=== PATIENT | female | born 1955 | race Caucasian/White ===

== ENCOUNTER → 2018-02-03 | Outpatient (CLI) | payer BC ==
[~2018-02-03] MED LIST: ATEN-1 PO; ATEN-65 PO; AZIT500T47 PO; CALC-545 PO; CETI-169 PO; CHOL500025 PO; CICPT NS; CLI150 PO; DIOVAN; DOXY-181 PO; ERG400 PO; ESC10 PO; EST5T TD; ESTR0.5T18 PO; FEXO-72 PO; FISH OIL1 CAP PO; FLU20 PO; IBU800 PO; KET10 PO; LACT1TAB19 PO; LEV175 PO; LEVO200T44 PO; LEVOX; LOR1 PO; LORA-674 PO; MAGN100T5 PO; MAX75 FT; MELO-149 PO; MUP2T TOP; NEBI2.5T PO; OMEP-218 PO; ONDA4TAB PO; PROM-110 PO; TRIEST; VALS1TAB76 PO; [UNRECOGNIZED DRUG - CODE] PO; diovan
== END ==
LOC: LAB 08:34
PROVIDERS: ATTEND Internal Medicine Endocrinology, Diabetes & Metabolism
DX: E21.3 Hyperparathyroidism, unspecified (principal); E03.9 Hypothyroidism, unspecified; R73.03 Prediabetes; E83.52 Hypercalcemia; E78.5 Hyperlipidemia, unspecified
CPT/HCPCS: 36415; 82040; 82247; 82306; 82310; 82330; 82374; 82435; 82465; 82565; 82947; 83036; 83718; 83735; 83970; 84075; 84100; 84132; 84155; 84295; 84443; 84450; 84460; 84478; 84520

== ENCOUNTER 2018-02-13 17:32 | Emergency (ER) | payer BC ==
--- NOTE | 2018-02-13 17:53 | ER Report ---
History and Physical Time Seen By MD: 17:51 Hx. of Stated Complaint: NAUSEA, VOMITTING, EXPLOSIVE DIARRHEA SINCE THIS MORNING. BODY ACHES EVERYWHERE HPI/ROS CHIEF COMPLAINT: Explosive diarrhea HISTORY OF PRESENT ILLNESS: 62-year-old female presents ambulatory to the ER complaining of vomiting and diarrhea. 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 She was traveling on the road eating in restaurants in truck stops. Early yesterday morning she developed diarrhea. It become explosive over the last 6 hours. She's had numerous episodes of vomiting. She feels lightheaded and dizzy. She's had no blood in the emesis or diarrhea. She 's had no fever. She denies recent anabolic use or exposure to ill contacts. REVIEW OF SYSTEMS: Respiratory: No cough, no dyspnea. Cardiovascular: No chest pain, no palpitations. Gastrointestinal: As above Musculoskeletal: No back pain. Allergies: Coded Allergies: cefaclor (Verified Allergy, Severe, ANAPHYLAXIS, 02/13/18) cephalexin (Verified Allergy, Severe, ANAPHYLAXIS, 02/13/18) Penicillins (Verified Allergy, Mild, may have it in emergency only, 02/13/18 ) Shellfish (Verified Allergy, Mild, 02/13/18) Sulfa (Sulfonamide Antibiotics) (Verified Allergy, Mild, 02/13/18) bacitracin (Verified Allergy, Mild, 02/13/18) benzocaine (Verified Allergy, Mild, 02/13/18) butoconazole (Verified Allergy, Mild, 02/13/18) chlorpheniramine (Verified Allergy, Mild, 02/13/18) cimetidine (Verified Allergy, Mild, 02/13/18) erythromycin base (Verified Allergy, Mild, 02/13/18) gramicidin D (Verified Allergy, Mild, 02/13/18) hydrocodone (Verified Allergy, Mild, 02/13/18) hydromorphone (Verified Allergy, Mild, 02/13/18) latex (Verified Allergy, Mild, 02/13/18) menthol (Verified Allergy, Mild, 02/13/18) miconazole (Verified Allergy, Mild, 02/13/18) morphine (Verified Allergy, Mild, 02/13/18) neomycin (Verified Allergy, Mild, 02/13/18) oxycodone (Verified Allergy, Mild, 02/13/18) phenazopyridine (Verified Allergy, Mild, 02/13/18) phenol (Verified Allergy, Mild, 02/13/18) polymyxin B (Verified Allergy, Mild, 02/13/18) povidone-iodine (Verified Allergy, Mild, 02/13/18) prochlorperazine (Verified Allergy, Mild, 02/13/18) sertraline (Verified Allergy, Mild, 02/13/18) tramadol (Verified Allergy, Mild, 02/13/18) Cephalosporins (Verified Allergy, Unknown, 02/13/18) clarithromycin (Verified Adverse Reaction, Mild, LOW WBC COUNT, 02/13/18) Uncoded Allergies: LATEX (Allergy, Mild, 10/30/10) NUTRASWEET (Allergy, Mild, 07/10/10) Home Meds Active Scripts Promethazine Hcl (PROMETHAZINE HCL) 25 Mg Tablet, 25 MG PO Q4H Y for NAUSEA/ VOMITING, #14 TAB Prov:ARLET ABAD DO 02/13/18 Ondansetron (ZOFRAN ODT) 4 Mg Tab.rapdis, 4 MG PO every 6 hours Y for NAUSEA/ VOMITING, #15 TAB TAKE 1 TABLET BY MOUTH EVERY 12 HOURS Prov:ARLET ABAD DO 02/13/18 Doxycycline Hyclate (DOXYCYCLINE HYCLATE) 100 Mg Capsule, 100 MG PO BID, #20 CAPSULE 0 Refills Prov:KENA CAR MD 05/09/15 Reported Medications Lactobacillus Acidophilus (Acidophilus) 1 Each Tablet, 1 TAB PO DAILY 02/04/14 Nebivolol Hcl (BYSTOLIC) 2.5 Mg Tablet, 2.5 MG PO DAILY 02/04/14 Fexofenadine Hcl (DEMIAN ALLERGY) 60 Mg Tablet, 30 MG PO DAILY 02/04/14 [place]-3 Fatty Acids (Fish Oil) 1 Cap Capsule, 1 CAP PO BID, 0 Refills 12/03/11 Calcium Citrate/Vitamin D3 (Citracal + D Caplet) 1 Tab Tablet, 1 TAB PO BID, 0 Refills 12/03/11 Cholecalciferol (Vitamin D3) 5,000 Unit Tablet, 5000 UNIT PO DAILY, 0 Refills 12/03/11 Fluoxetine Hcl (Prozac) 20 Mg Cap, 20 MG PO QDAY, 0 Refills 12/03/11 Estradiol (Estrace) 0.5 Mg Tablet, 1 MG PO DAILY, 0 Refills 12/03/11 Levothyroxine Sodium (Synthroid/Levothroid) 0.175 Mg Tab, 200 MCG PO QDAY, 0 Refills 12/03/11 Omeprazole Magnesium (Prilosec Otc) 20 Mg Tablet.dr, 20 MG PO QDAY Y for DYSPEPSIA, 0 Refills 12/03/11 Reviewed Nurses Notes: Yes Old Medical Records Reviewed: Yes Hx Smoking: Yes Smoking Status: Former Smoker Exposure to Second Hand Smoke?: No Hx Substance Use Disorder: No Hx Alcohol Use: No Constitutional Vital Sign - Last 24 Hours 02/13/18 02/13/18 02/13/18 02/13/18 17:37 17:41 18:42 18:45 Temp 99.5 Pulse 100 Resp 18 B/P (MAP) 161/107 161/107 (125) 155/81 (105) Pulse Ox 91 O2 Delivery Room Air O2 Flow Rate 4.5 02/13/18 02/13/18 02/13/18 02/13/18 18:47 18:52 18:57 19:27 Pulse 100 96 94 88 Pulse Ox 88 92 93 97 O2 Delivery Nasal Cannula O2 Flow Rate 4.5 02/13/18 02/13/18 02/13/18 02/13/18 19:32 19:41 19:46 20:16 Pulse 87 90 87 B/P (MAP) 134/80 (98) Pulse Ox 97 95 96 97 O2 Delivery Nasal Cannula O2 Flow Rate 3 02/13/18 02/13/18 02/13/18 20:46 20:48 20:50 Pulse 90 85 89 B/P (MAP) 130/79 (96) Pulse Ox 96 93 92 O2 Delivery Room Air Physical Exam General Appearance: The patient is alert, has no immediate need for airway protection and no current signs of toxicity. Vital signs stable, afebrile, slightly pale appearing, skin warm and dry Eyes: Pupils equal and round no injection. Respiratory: Chest is non tender, lungs are clear to auscultation. Cardiac: regular rate and rhythm Gastrointestinal: Abdomen is soft and non tender, no masses, bowel sounds hyperactive. Musculoskeletal: Neck: Neck is supple and non tender. Extremities have full range of motion and are non tender. Skin: No rashes or lesions. DIFFERENTIAL DIAGNOSIS: After history and physical exam differential diagnosis was considered for abdominal pain including but not limited to appendicitis, cholecystitis, gastritis, gastroenteritis, food poisoning, viral syndrome, Clostridium difficile and urinary tract infection. Medical Decision Making Data Points Result Diagram: 02/13/18 18202/13/18 1822 Laboratory Hematology Test 02/13/18 17:45 02/13/18 18:10 02/13/18 18:22 Influenza Virus Type A (PCR) Negative (NEGATIVE) Influenza Virus Type B (PCR) Negative (NEGATIVE) Urine Color Yellow Urine Clarity Slightly-cloudy Urine pH 5.0 pH (4.8-9.5) Urine Specific [place] 1.019 Urine Protein Negative mg/dL (NEGATIVE) Urine Glucose (UA) Negative mg/dL (NEGATIVE) Urine Ketones Negative mg/dL (NEGATIVE) Urine Blood Small (NEGATIVE) Urine Nitrite Negative (NEGATIVE) Urine Bilirubin Negative (NEGATIVE) Urine Urobilinogen Negative mg/dL (0.2-1.9) Urine Leukocyte Esterase Negative (NEGATIVE) Urine RBC None /HPF (0-2/HPF) Urine WBC 3 /HPF (0-5/HPF) Urine Squamous Epithelial Cells Many /LPF (</=FEW) Urine Bacteria Negative /HPF (NONE-FEW) Urine Mucus None /HPF (NONE-FEW) Red Blood Count 5.55 M/uL (4.17-5.56) Mean Corpuscular Volume 87.1 fL (80.0-96.0) Mean Corpuscular Hemoglobin 30.6 pg (26.0-33.0) Mean Corpuscular Hemoglobin Concent 35.1 g/dL (32.0-36.0) Red Cell Distribution Width 13.5 % (11.5-14.5) Mean Platelet Volume 7.9 fL (7.2-11.1) Neutrophils (%) (Auto) 86.8 % (39.4-72.5) Lymphocytes (%) (Auto) 7.6 % (17.6-49.6) Monocytes (%) (Auto) 3.9 % (4.1-12.4) Eosinophils (%) (Auto) 0.4 % (0.4-6.7) Basophils (%) (Auto) 1.3 % (0.3-1.4) Nucleated RBC Relative Count (auto) 0.1 /100WBC Neutrophils # (Auto) 7.0 K/uL (2.0-7.4) Lymphocytes # (Auto) 0.6 K/uL (1.3-3.6) Monocytes # (Auto) 0.3 K/uL (0.3-1.0) Eosinophils # (Auto) 0.0 K/uL (0.0-0.5) Basophils # (Auto) 0.1 K/uL (0.0-0.1) Nucleated RBC Absolute Count (auto) 0.01 K/uL Sodium Level 140 mmol/L (137-145) Potassium Level 4.0 mmol/L (3.5-5.0) Chloride Level 99 mmol/L (98-107) Carbon Dioxide Level 23 mmol/L (22-31) Blood Urea Nitrogen 28 mg/dl (7-18) Creatinine 1.20 mg/dl (0.52-1.04) Glomerular Filtration Rate Calc 45.8 Random Glucose 143 mg/dl (75-110) Calcium Level 9.0 mg/dl (8.4-10.2) Total Bilirubin 0.7 mg/dl (0.2-1.3) Aspartate Amino Transf (AST/SGOT) 24 U/L (0-35) Alanine Aminotransferase (ALT/SGPT) 26 U/L (0-56) Alkaline Phosphatase 117 U/L (0-126) Total Protein 7.6 gm/dl (6.3-8.2) Albumin 4.2 g/dl (3.5-5.0) Amylase Level 81 U/L (0-110) Lipase 93 U/L (23-300) Chemistry Test 02/13/18 17:45 02/13/18 18:10 02/13/18 18:22 Influenza Virus Type A (PCR) Negative (NEGATIVE) Influenza Virus Type B (PCR) Negative (NEGATIVE) Urine Color Yellow Urine Clarity Slightly-cloudy Urine pH 5.0 pH (4.8-9.5) Urine Specific [place] 1.019 Urine Protein Negative mg/dL (NEGATIVE) Urine Glucose (UA) Negative mg/dL (NEGATIVE) Urine Ketones Negative mg/dL (NEGATIVE) Urine Blood Small (NEGATIVE) Urine Nitrite Negative (NEGATIVE) Urine Bilirubin Negative (NEGATIVE) Urine Urobilinogen Negative mg/dL (0.2-1.9) Urine Leukocyte Esterase Negative (NEGATIVE) Urine RBC None /HPF (0-2/HPF) Urine WBC 3 /HPF (0-5/HPF) Urine Squamous Epithelial Cells Many /LPF (</=FEW) Urine Bacteria Negative /HPF (NONE-FEW) Urine Mucus None /HPF (NONE-FEW) White Blood Count 8.0 k/uL (4.5-11.0) Red Blood Count 5.55 M/uL (4.17-5.56) Hemoglobin 17.0 g/dL (12.0-16.0) Hematocrit 48.3 % (34.0-47.0) Mean Corpuscular Volume 87.1 fL (80.0-96.0) Mean Corpuscular Hemoglobin 30.6 pg (26.0-33.0) Mean Corpuscular Hemoglobin Concent 35.1 g/dL (32.0-36.0) Red Cell Distribution Width 13.5 % (11.5-14.5) Platelet Count 319 K/uL (150-450) Mean Platelet Volume 7.9 fL (7.2-11.1) Neutrophils (%) (Auto) 86.8 % (39.4-72.5) Lymphocytes (%) (Auto) 7.6 % (17.6-49.6) Monocytes (%) (Auto) 3.9 % (4.1-12.4) Eosinophils (%) (Auto) 0.4 % (0.4-6.7) Basophils (%) (Auto) 1.3 % (0.3-1.4) Nucleated RBC Relative Count (auto) 0.1 /100WBC Neutrophils # (Auto) 7.0 K/uL (2.0-7.4) Lymphocytes # (Auto) 0.6 K/uL (1.3-3.6) Monocytes # (Auto) 0.3 K/uL (0.3-1.0) Eosinophils # (Auto) 0.0 K/uL (0.0-0.5) Basophils # (Auto) 0.1 K/uL (0.0-0.1) Nucleated RBC Absolute Count (auto) 0.01 K/uL Glomerular Filtration Rate Calc 45.8 Calcium Level 9.0 mg/dl (8.4-10.2) Total Bilirubin 0.7 mg/dl (0.2-1.3) Aspartate Amino Transf (AST/SGOT) 24 U/L (0-35) Alanine Aminotransferase (ALT/SGPT) 26 U/L (0-56) Alkaline Phosphatase 117 U/L (0-126) Total Protein 7.6 gm/dl (6.3-8.2) Albumin 4.2 g/dl (3.5-5.0) Amylase Level 81 U/L (0-110) Lipase 93 U/L (23-300) Urinalysis Test 02/13/18 18:10 Urine Color Yellow Urine Clarity Slightly-cloudy Urine pH 5.0 pH (4.8-9.5) Urine Specific [place] 1.019 Urine Protein Negative mg/dL (NEGATIVE) Urine Glucose (UA) Negative mg/dL (NEGATIVE) Urine Ketones Negative mg/dL (NEGATIVE) Urine Blood Small (NEGATIVE) Urine Nitrite Negative (NEGATIVE) Urine Bilirubin Negative (NEGATIVE) Urine Urobilinogen Negative mg/dL (0.2-1.9) Urine Leukocyte Esterase Negative (NEGATIVE) Urine RBC None /HPF (0-2/HPF) Urine WBC 3 /HPF (0-5/HPF) Urine Squamous Epithelial Cells Many /LPF (</=FEW) Urine Bacteria Negative /HPF (NONE-FEW) Urine Mucus None /HPF (NONE-FEW) ED Course/Re-evaluation Clinical Indication for ER IV: Hydration, IV Access ED Course Patient was admitted to an examination room. H&P was done. The differential diagnoses was considered. On clinical examination. Patient has a benign nonsurgical abdomen. Her vital signs are stable. She is treated with IV fluid hydration, Zofran and Phenergan IV. Her diagnostic studies are unremarkable. Patient's only had diarrhea for one day. I suspect she suffered food poisoning from her recent travels eating at truck stops in restaurants along the route. Patient advised clear liquid diet. She is given prescriptions for Phenergan and Zofran. She is advised to follow-up with primary care if unimproved in 3-5 days. Decision to Disposition Date: Feb 13, 2018 Decision to Disposition Time: 20:08 Depart Departure Latest Vital Signs Vital Signs Date Time Temp Pulse Resp B/P (MAP) Pulse Ox O2 Delivery O2 Flow Rate FiO2 02/13/18 20:50 89 130/79 (96) 92 Room Air 02/13/18 19:41 3 02/13/18 17:37 99.5 18 Impression: Primary Impression: Food poisoning Additional Impressions: Vomiting and diarrhea Chronic renal failure, stage 1 Condition: Improved Disposition: HOME OR SELF-CARE Referrals: STACI MCINTOSH DO (PCP) New Scripts Promethazine Hcl (PROMETHAZINE HCL) 25 Mg Tablet 25 MG PO Q4H Y for NAUSEA/VOMITING, #14 TAB Prov: ARLET ABAD DO 02/13/18 Ondansetron (ZOFRAN ODT) 4 Mg Tab.rapdis 4 MG PO every 6 hours Y for NAUSEA/VOMITING, #15 TAB TAKE 1 TABLET BY MOUTH EVERY 12 HOURS Prov: ARLET ABAD DO 02/13/18 Patient Instructions: Clear Liquid Diet (ED), Food Poisoning (ED) Additional Instructions: Follow clear liquid diet for 24-48 hours, then advance to the brat diet, bananas , rice, applesauce and toast Avoid fatty food, greasy foods, vegetables and dairy for 48 hours Follow-up with your primary care if unimproved in 3-5 days Problem Qualifiers Primary Impression: Food poisoning Encounter type: initial encounter Injury intent: accidental or unintentional Qualified Codes: T62.91XA - Toxic effect of unspecified noxious substance eaten as food, accidental (unintentional), initial encounter ARLET ABAD DO Feb 13, 2018 17:52
[2018-02-13] MEDS ORDERED: NS(*) 0.9% 1000 ML BAG 1,000 ML IV ONE (17:58)
[2018-02-13] MEDS ORDERED: PROMETHAZINE 25 MG/ML 1 ML AMP IVP ONE (18:00)
[2018-02-13] MEDS ORDERED: fentaNYL CITR 100 MCG/2 ML AMP IVP ONE (18:00)
[2018-02-13] MEDS ORDERED: ONDANSETRON 4 MG/2 ML VIAL IVP ONE (18:00)
[2018-02-13 18:47] LABS: PLATELET COUNT, AUTOMATED 319 K/uL (150-450)
[2018-02-13] MEDS ORDERED: ONDA4TAB PO (20:10)
[2018-02-13] MEDS ORDERED: PROM-110 PO (20:10)
[2018-02-13 20:50] VITALS: BP 130/79
[2018-02-13] MEDS ORDERED: PROMETHAZINE HCL 25 MG TAB TH 2 TAB/BOTTLE PO ONE (20:55)
[2018-02-13] MEDS ORDERED: ONDANSETRON 4 MG ODT TABDP SL ONE (20:55)
== END 2018-02-13 20:59 | disposition home or self-care (01) ==
LOC: ER 17:57
DX: T62.91XA Toxic effect of unspecified noxious substance eaten as food, accidental (unintentional), initial encounter (principal); N18.1 Chronic kidney disease, stage 1
CPT/HCPCS: 81001; 82150; 83690; 85025; 87502; 96361; 96374; 96375; 99284; J2405; J2550; J3010; J7030; S0119; 82040; 82247; 82310; 82374; 82435; 82565; 82947; 84075; 84132; 84155; 84295; 84450; 84460; 84520

== ENCOUNTER → 2018-05-29 | Outpatient (CLI) | payer BC ==
--- NOTE | 2018-05-29 16:19 | RADIOLOGY IMAGING REPORT ---
FACILITY: [facility] [place] PATIENT NAME: JESÚS MOTA : [id number] MR: [id number] V: [id number] EXAM DATE: [id number] ORDERING PHYSICIAN: STACI MCINTOSH TECHNOLOGIST: Rohini Dumont PROCEDURE:BILATERAL DIGITAL SCREENING MAMMOGRAM WITH CAD ASSISTED INTERPRETATION & 3D TOMOSYNTHESIS COMPARISON:Multiple priors between 04/09/17 and 11/21/12. INDICATIONS:screening FINDINGS: The breasts have scattered fibroglandular parenchymal densities. Small asymmetries and benign appearing areas of nodularity are not changed significantly. No new mammographic findings concerning for malignancy. DIAGNOSTIC CATEGORY 2-BENIGN FINDING. RECOMMENDATIONS: ROUTINE MAMMOGRAM AND CLINICAL EVALUATION IN 1 YEAR. IMPRESSION: BIRADS 2: Benign findings. Dictated by: Juan Manuel Cardenas on 05/29/2018 at 13:52 Transcribed by: VICKEY on 05/29/2018 at 14:07 Approved by: Juan Manuel Cardenas on 05/29/2018 at 16:18 [facility]
== END ==
LOC: MAMO 01:53
PROVIDERS: ATTEND Family Medicine
DX: Z12.31 Encounter for screening mammogram for malignant neoplasm of breast (principal)
CPT/HCPCS: 77063; 77067

== ENCOUNTER → 2018-06-11 | Outpatient (CLI) | payer BC | LOC: LAB 10:10 | PROVIDERS: ATTEND Family Medicine | DX: L40.52 Psoriatic arthritis mutilans (principal); M25.50 Pain in unspecified joint; E28.2 Polycystic ovarian syndrome | CPT/HCPCS: 36415; 82671; 83001; 83002; 85027; 85651; 86140; 86430 ==

== ENCOUNTER → 2018-06-26 | Outpatient (CLI) | payer BC | LOC: LAB 12:14 | PROVIDERS: ATTEND Family Medicine | DX: L40.9 Psoriasis, unspecified (principal); M25.40 Effusion, unspecified joint; M25.50 Pain in unspecified joint | CPT/HCPCS: 36415; 86038; 86140 ==

== ENCOUNTER → 2018-07-29 | Outpatient (CLI) | payer BC | LOC: LAB 12:41 | PROVIDERS: ATTEND Internal Medicine Endocrinology, Diabetes & Metabolism | DX: E03.9 Hypothyroidism, unspecified (principal); E21.3 Hyperparathyroidism, unspecified | CPT/HCPCS: 36415; 82040; 82247; 82306; 82310; 82330; 82374; 82435; 82565; 82947; 83036; 83735; 83970; 84075; 84100; 84132; 84155; 84295; 84443; 84450; 84460; 84520 ==

== ENCOUNTER → 2018-08-27 | Outpatient (CLI) | payer BC | LOC: LAB 10:44 | PROVIDERS: ATTEND Internal Medicine Endocrinology, Diabetes & Metabolism | DX: E21.3 Hyperparathyroidism, unspecified (principal) | CPT/HCPCS: 36415; 82330; 83970 ==

== ENCOUNTER → 2018-09-17 | Outpatient (CLI) | payer BC | LOC: LAB 09:05 | PROVIDERS: ATTEND Internal Medicine Cardiovascular Disease | DX: E78.00 Pure hypercholesterolemia, unspecified (principal); I25.10 Atherosclerotic heart disease of native coronary artery without angina pectoris; I10 Essential (primary) hypertension | CPT/HCPCS: 36415; 82310; 82374; 82435; 82465; 82565; 82947; 83718; 84132; 84295; 84478; 84520 ==

== ENCOUNTER → 2018-09-29 | Outpatient (CLI) | payer BC ==
--- NOTE | 2018-09-29 10:20 | RADIOLOGY IMAGING REPORT ---
FACILITY: [facility] PATIENT NAME: Floridalma Santos : 1955 MR: [id number] V: [id number] EXAM DATE: ORDERING PHYSICIAN: JACQUELINE DARDEN TECHNOLOGIST: Location: [facility] Patient: Floridalma Santos : 1955 Visit/Account:[id number] Date of Sevice: 09/29/2018 FOOT 3 VIEW RIGHT HISTORY: No known injury. Right foot pain. Pain in first metatarsal-phalangeal joint. FINDINGS: No acute bony pathology. No fractures or osseous lesions identified. There is mild DJD changes in th e first metatarsal-phalangeal joint with minimal subchondral sclerosis and spurring changes noted at the joint space. Remainder the joint spaces are unremarkable. Plantar spurring changes noted from the calcaneus measuring 4 mm. Soft tissues unremarkable. IMPRESSION: 1. Negative right foot for acute bony pathology. 2. Mild degenerative changes at the first metatarsal-phalangeal joint. Report Dictated By: Rafi Deluna MD at 09/29/2018 10:14 AM Report E-Signed By: Rafi Deluna MD at 09/29/2018 10:16 AM WSN:[id number]
== END ==
LOC: RAD 09:20
PROVIDERS: ATTEND Physician Assistant
DX: M19.071 Primary osteoarthritis, right ankle and foot (principal)

== ENCOUNTER → 2018-10-07 | Outpatient (CLI) | payer BC | LOC: LAB 08:10 | PROVIDERS: ATTEND Nurse Practitioner Family | DX: T78.02XD Anaphylactic reaction due to shellfish (crustaceans), subsequent encounter (principal) | CPT/HCPCS: 36415 ==

== ENCOUNTER → 2018-10-23 | Outpatient (CLI) | payer BC ==
[2018-10-23 09:35] LABS: PLATELET COUNT, AUTOMATED 275 K/uL (150-450)
== END ==
LOC: LAB 09:04
PROVIDERS: ATTEND Internal Medicine Nephrology
DX: I12.9 Hypertensive chronic kidney disease with stage 1 through stage 4 chronic kidney disease, or unspecified chronic kidney disease (principal); N18.2 Chronic kidney disease, stage 2 (mild); E21.3 Hyperparathyroidism, unspecified; D64.9 Anemia, unspecified; E83.52 Hypercalcemia; E83.51 Hypocalcemia
CPT/HCPCS: 36415; 82040; 82310; 82374; 82435; 82565; 82570; 82947; 83735; 84100; 84132; 84156; 84295; 84520; 85025

== ENCOUNTER 2019-02-01 08:26 | Emergency (ER) | payer BC ==
[2019-02-01 08:28] VITALS: BP 150/93
--- NOTE | 2019-02-01 08:29 | ER Report ---
History and Physical Time Seen By MD: 08:28 HPI/ROS CHIEF COMPLAINT: Skin infection HISTORY OF PRESENT ILLNESS: Patient is a 63-year-old female who recently returned from a cruise from the [facility] and is experiencing some redness pain and swelling under her left arm pit. It actually does not involve the armpit but is just below the axilla more along the left upper thoracic wall. She admits that one of the sites drain some pus which is stopped but she's having feelings of "illness". She denies fevers although temperature was 99.7 she denies nausea vomiting she denies any other symptoms. She does have a past medical history for multiple skin infections. Allergies: Coded Allergies: cefaclor (Verified Allergy, Severe, ANAPHYLAXIS, 02/13/18) cephalexin (Verified Allergy, Severe, ANAPHYLAXIS, 02/13/18) Penicillins (Verified Allergy, Mild, may have it in emergency only, 02/13/18) Shellfish (Verified Allergy, Mild, 02/13/18) Sulfa (Sulfonamide Antibiotics) (Verified Allergy, Mild, 02/13/18) bacitracin (Verified Allergy, Mild, 02/13/18) benzocaine (Verified Allergy, Mild, 02/13/18) butoconazole (Verified Allergy, Mild, 02/13/18) chlorpheniramine (Verified Allergy, Mild, 02/13/18) cimetidine (Verified Allergy, Mild, 02/13/18) erythromycin base (Verified Allergy, Mild, 02/13/18) gramicidin D (Verified Allergy, Mild, 02/13/18) hydrocodone (Verified Allergy, Mild, 02/13/18) hydromorphone (Verified Allergy, Mild, 02/13/18) latex (Verified Allergy, Mild, 02/13/18) menthol (Verified Allergy, Mild, 02/13/18) miconazole (Verified Allergy, Mild, 02/13/18) morphine (Verified Allergy, Mild, 02/13/18) neomycin (Verified Allergy, Mild, 02/13/18) oxycodone (Verified Allergy, Mild, 02/13/18) phenazopyridine (Verified Allergy, Mild, 02/13/18) phenol (Verified Allergy, Mild, 02/13/18) polymyxin B (Verified Allergy, Mild, 02/13/18) povidone-iodine (Verified Allergy, Mild, 02/13/18) prochlorperazine (Verified Allergy, Mild, 02/13/18) sertraline (Verified Allergy, Mild, 02/13/18) tramadol (Verified Allergy, Mild, 02/13/18) Cephalosporins (Verified Allergy, Unknown, 02/13/18) clarithromycin (Verified Adverse Reaction, Mild, LOW WBC COUNT, 02/13/18) Uncoded Allergies: LATEX (Allergy, Mild, 10/30/10) NUTRASWEET (Allergy, Mild, 07/10/10) Home Meds Active Scripts Clindamycin Hcl (CLINDAMYCIN HCL) 300 Mg Capsule, 300 MG PO Q6H, #40 CAPSULE 0 Refills Prov:MARLON AGUILAR MD 02/01/19 Reported Medications Aspirin (ASPIRIN) 81 Mg Tab.chew, 81 MG PO QDAY, TAB.CHEW 02/01/19 Lactobacillus Acidophilus (Acidophilus) 1 Each Tablet, 1 TAB PO DAILY 02/04/14 Nebivolol Hcl (BYSTOLIC) 2.5 Mg Tablet, 2.5 MG PO DAILY 02/04/14 Fexofenadine Hcl (DEMIAN ALLERGY) 60 Mg Tablet, 30 MG PO DAILY 02/04/14 Cholecalciferol (Vitamin D3) 5,000 Unit Tablet, 5000 UNIT PO DAILY, 0 Refills 12/03/11 Fluoxetine Hcl (Prozac) 20 Mg Cap, 20 MG PO QDAY, 0 Refills 12/03/11 Estradiol (Estrace) 0.5 Mg Tablet, 1 MG PO DAILY, 0 Refills 12/03/11 Levothyroxine Sodium (Synthroid/Levothroid) 0.175 Mg Tab, 200 MCG PO QDAY, 0 Refills 12/03/11 Discontinued Reported Medications [place]-3 Fatty Acids (Fish Oil) 1 Cap Capsule, 1 CAP PO BID, 0 Refills 12/03/11 Calcium Citrate/Vitamin D3 (Citracal + D Caplet) 1 Tab Tablet, 1 TAB PO BID, 0 Refills 12/03/11 Omeprazole Magnesium (Prilosec Otc) 20 Mg Tablet.dr, 20 MG PO QDAY PRN for DYSPEPSIA, 0 Refills 12/03/11 Discontinued Scripts Promethazine Hcl (PROMETHAZINE HCL) 25 Mg Tablet, 25 MG PO Q4H PRN for NAUSEA/VOMITING, #14 TAB Prov:ARLET ABAD DO 02/13/18 Ondansetron (ZOFRAN ODT) 4 Mg Tab.rapdis, 4 MG PO every 6 hours PRN for NAUSEA/VOMITING, #15 TAB TAKE 1 TABLET BY MOUTH EVERY 12 HOURS Prov:ARLET ABAD DO 02/13/18 Doxycycline Hyclate (DOXYCYCLINE HYCLATE) 100 Mg Capsule, 100 MG PO BID, #20 CAPSULE 0 Refills Prov:KENA CAR MD 05/09/15 Past Medical/Surgical History History of multiple skin infections, history of adrenal insufficiency Hx Smoking: Yes Smoking Status: Former Smoker Exposure to Second Hand Smoke?: No Hx Substance Use Disorder: No Hx Alcohol Use: No Constitutional Vital Sign - Last 24 Hours 02/01/19 08:28 Temp 99.7 Pulse 85 Resp 16 B/P (MAP) 150/93 Pulse Ox 91 O2 Delivery Room Air Physical Exam General appearance: Alert no distress. Respiratory: Chest is non tender, lungs are clear to auscultation. Cardiac: Regular rate and rhythm [ ] Examination of the skin shows erythema just below the left axilla that measures approximately 5 cm x 3 cm in the area is indurated no fluctuance was felt. A bedside ultrasound failed to show any evidence of fluid collection under the area in question. Medical Decision Making ED Course/Re-evaluation ED Course Plan at this time will be conservative treatment with antibiotics we will give d ose of intramuscular clindamycin and start the patient on clindamycin. Patient was counseled that symptoms may worsen and she may form an abscess we recommend to the patient that she return in 24 hours for reevaluation and reultrasound to see if there is any drainable fluid; patient is in agreement. Decision to Disposition Date: Feb 01, 2019 Decision to Disposition Time: 09:02 Depart Departure Latest Vital Signs Vital Signs Date Time Temp Pulse Resp B/P (MAP) Pulse Ox O2 Delivery O2 Flow Rate FiO2 02/01/19 08:28 99.7 85 16 150/93 91 Room Air Impression: Primary Impression: Cellulitis Condition: Improved Disposition: HOME OR SELF-CARE Referrals: STACI MCINTOSH DO (PCP) New Scripts Clindamycin Hcl (CLINDAMYCIN HCL) 300 Mg Capsule 300 MG PO Q6H, #40 CAPSULE 0 Refills Prov: MARLON AGUILAR MD 02/01/19 Patient Instructions: Cellulitis (ED) Additional Instructions: Return to the emergency department in 24 hours for reevaluation of cellulitis and for reevaluation by ultrasound to see if there is a fluid collection. Return to the emergency Department sooner if he develops significant fever or worsening symptoms worsening pain. Problem Qualifiers Primary Impression: Cellulitis Site of cellulitis: trunk Site of cellulitis of trunk: chest wall Qualified Codes: L03.313 - Cellulitis of chest wall MARLON AGUILAR MD Feb 01, 2019 08:29
[2019-02-01] MEDS ORDERED: CLINDAMYCIN 300 MG/2 ML VIAL IM ONE (08:45)
[2019-02-01] MEDS ORDERED: ASPI81TA94 PO (08:47)
[2019-02-01] MEDS ORDERED: CLIN300C99 PO (08:52)
[2019-02-02] MEDS ORDERED: NAPR375T44 PO (09:38)
== END 2019-02-01 09:14 | disposition home or self-care (01) ==
LOC: ER 08:31
DX: L03.313 Cellulitis of chest wall (principal)
CPT/HCPCS: 96372; 99283; J3490

== ENCOUNTER 2019-02-02 08:13 | Emergency (ER) | payer BC ==
[~2019-02-02 08:13] MED LIST changes: +ASPI81TA94 PO; +CLIN300C99 PO
--- NOTE | 2019-02-02 08:24 | ER Report ---
History and Physical Time Seen By MD: 08:24 Hx. of Stated Complaint: here for re-evaluation of cellulitis in left axilla. redness has not spread but the redness has gotten more pronounced. patient also reports diahrhea and strong metalic taste in mouth HPI/ROS CHIEF COMPLAINT: Follow-up HISTORY OF PRESENT ILLNESS: Patient is a 63-year-old female who returns for follow-up of left thoracic chest wall cellulitis which seems to have worsened in intensity and redness although has not spread terribly beyond the pen line from yesterday. There is definitely area of fluctuance today. She states she's having diarrhea from the clindamycin. 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 Review the electronic medical literature shows that in 2009 when she was admitted for lower extremity cellulitis she was treated with IV clindamycin and sent home on oral clindamycin for 8 days. I explained to patient that clindamycin is the best choice for severe penicillin or cephalosporin allergies and we will decrease her dosage from 4 times a day to 3 times a day and have her continue to take any active cultures or acidophilus. She denies any fevers or chills. REVIEW OF SYSTEMS: Constitutional: No fever, no chills. Skin: Area of induration and mild fluctuance under left arm along thoracic well Allergies: Coded Allergies: cefaclor (Verified Allergy, Severe, ANAPHYLAXIS, 02/13/18) cephalexin (Verified Allergy, Severe, ANAPHYLAXIS, 02/13/18) Penicillins (Verified Allergy, Mild, may have it in emergency only, 02/13/18) Shellfish (Verified Allergy, Mild, 02/13/18) Sulfa (Sulfonamide Antibiotics) (Verified Allergy, Mild, 02/13/18) bacitracin (Verified Allergy, Mild, 02/13/18) benzocaine (Verified Allergy, Mild, 02/13/18) butoconazole (Verified Allergy, Mild, 02/13/18) chlorpheniramine (Verified Allergy, Mild, 02/13/18) cimetidine (Verified Allergy, Mild, 02/13/18) erythromycin base (Verified Allergy, Mild, 02/13/18) gramicidin D (Verified Allergy, Mild, 02/13/18) hydrocodone (Verified Allergy, Mild, 02/13/18) hydromorphone (Verified Allergy, Mild, 02/13/18) latex (Verified Allergy, Mild, 02/13/18) menthol (Verified Allergy, Mild, 02/13/18) miconazole (Verified Allergy, Mild, 02/13/18) morphine (Verified Allergy, Mild, 02/13/18) neomycin (Verified Allergy, Mild, 02/13/18) oxycodone (Verified Allergy, Mild, 02/13/18) phenazopyridine (Verified Allergy, Mild, 02/13/18) phenol (Verified Allergy, Mild, 02/13/18) polymyxin B (Verified Allergy, Mild, 02/13/18) povidone-iodine (Verified Allergy, Mild, 02/13/18) prochlorperazine (Verified Allergy, Mild, 02/13/18) sertraline (Verified Allergy, Mild, 02/13/18) tramadol (Verified Allergy, Mild, 02/13/18) Cephalosporins (Verified Allergy, Unknown, 02/13/18) clarithromycin (Verified Adverse Reaction, Mild, LOW WBC COUNT, 02/13/18) Uncoded Allergies: LATEX (Allergy, Mild, 10/30/10) NUTRASWEET (Allergy, Mild, 07/10/10) Home Meds Active Scripts Naproxen (NAPROXEN) 375 Mg Tablet, 375 MG PO TID, #20 TAB 0 Refills Prov:MARLON AGUILAR MD 02/02/19 Clindamycin Hcl (CLINDAMYCIN HCL) 300 Mg Capsule, 300 MG PO Q6H, #40 CAPSULE 0 Refills Prov:MARLON AGUILAR MD 02/01/19 Reported Medications Aspirin (ASPIRIN) 81 Mg Tab.chew, 81 MG PO QDAY, TAB.CHEW 02/01/19 Lactobacillus Acidophilus (Acidophilus) 1 Each Tablet, 1 TAB PO DAILY 02/04/14 Nebivolol Hcl (BYSTOLIC) 2.5 Mg Tablet, 2.5 MG PO DAILY 02/04/14 Fexofenadine Hcl (DEMIAN ALLERGY) 60 Mg Tablet, 30 MG PO DAILY 02/04/14 Cholecalciferol (Vitamin D3) 5,000 Unit Tablet, 5000 UNIT PO DAILY, 0 Refills 12/03/11 Fluoxetine Hcl (Prozac) 20 Mg Cap, 20 MG PO QDAY, 0 Refills 12/03/11 Estradiol (Estrace) 0.5 Mg Tablet, 1 MG PO DAILY, 0 Refills 12/03/11 Levothyroxine Sodium (Synthroid/Levothroid) 0.175 Mg Tab, 200 MCG PO QDAY, 0 Refills 12/03/11 Discontinued Reported Medications [place]-3 Fatty Acids (Fish Oil) 1 Cap Capsule, 1 CAP PO BID, 0 Refills 12/03/11 Calcium Citrate/Vitamin D3 (Citracal + D Caplet) 1 Tab Tablet, 1 TAB PO BID, 0 Refills 12/03/11 Omeprazole Magnesium (Prilosec Otc) 20 Mg Tablet.dr, 20 MG PO QDAY PRN for DYSPEPSIA, 0 Refills 12/03/11 Discontinued Scripts Promethazine Hcl (PROMETHAZINE HCL) 25 Mg Tablet, 25 MG PO Q4H PRN for NAUSEA/VOMITING, #14 TAB Prov:ARLET ABAD DO 02/13/18 Ondansetron (ZOFRAN ODT) 4 Mg Tab.rapdis, 4 MG PO every 6 hours PRN for NAUSEA/VOMITING, #15 TAB TAKE 1 TABLET BY MOUTH EVERY 12 HOURS Prov:ARLET ABAD DO 02/13/18 Doxycycline Hyclate (DOXYCYCLINE HYCLATE) 100 Mg Capsule, 100 MG PO BID, #20 CAPSULE 0 Refills Prov:KENA CAR MD 05/09/15 Past Medical/Surgical History History of cellulitis history of hypothyroidism Hx Smoking: Yes Smoking Status: Former Smoker Exposure to Second Hand Smoke?: No Hx Substance Use Disorder: No Hx Alcohol Use: No Constitutional Vital Sign - Last 24 Hours 02/02/19 02/02/19 08:17 09:55 Temp 98.7 Pulse 77 85 Resp 16 16 B/P (MAP) 137/100 138/88 (105) Pulse Ox 91 90 O2 Delivery Room Air Room Air Physical Exam General appearance: Alert no distress. Skin: There is a 5 x 7 cm area of erythema to the upper thoracic wall just below the axilla. Series warm and tender to the touch there does appear to be fluctuance. A bedside ultrasound does demonstrate a pocket of fluid which we will drain. [ ] Medical Decision Making ED Course/Re-evaluation ED Course ED incision and drainage: Patient was draped and prepped in usual sterile fashion using Hibiclens for skin cleansing. 0.5% lidocaine with epinephrine was used for regional anesthesia at the area of maximum fluctuance. Using an 11 blade a stab incision approximately 1 cm in length was made on the return of a scant amount of purulent fluid along with some blood. Using a sterile tipped cotton applicator the pocket was explored to his extension all loculations were broken up. The wound was then packed with approximately 20 cm of Nu Gauze and a dressing was applied. Patient tolerated procedure well. Decision to Disposition Date: Feb 02, 2019 Decision to Disposition Time: 09:32 Depart Departure Latest Vital Signs Vital Signs Date Time Temp Pulse Resp B/P (MAP) Pulse Ox O2 Delivery O2 Flow Rate FiO2 02/02/19 09:55 85 16 138/88 (105) 90 Room Air 02/02/19 08:17 98.7 Impression: Primary Impression: Cellulitis Condition: Improved Disposition: HOME OR SELF-CARE Referrals: STACI MCINTOSH DO (PCP) New Scripts Naproxen (NAPROXEN) 375 Mg Tablet 375 MG PO TID, #20 TAB 0 Refills Prov: MARLON AGUILAR MD 02/02/19 Patient Instructions: Abscess Incision and Drainage (DC), Cellulitis (DC) Additional Instructions: Return to the emergency department tomorrow for further evaluation Decrease the frequency of clindamycin from 4 times a day to 3 times a day. A given a dose of clindamycin in the emergency department so he only required 2 more doses of medication today then resumed 300 mg tablet by mouth 3 times a day until complete At any point her symptoms worsen or he develop fever, worsening pain or worsening redness return to the emergency department for reevaluation. Problem Qualifiers Primary Impression: Cellulitis Site of cellulitis: trunk Site of cellulitis of trunk: chest wall Qualified Codes: L03.313 - Cellulitis of chest wall MARLON AGUILAR MD Feb 02, 2019 08:24
[2019-02-02] MEDS ORDERED: CLINDAMYCIN(*) 600 MG/NS 50 ML 50 ML IVPB ONE (09:20)
[2019-02-02] MEDS ORDERED: CLINDAMYCIN 300 MG/2 ML VIAL IM ONE (09:25)
[2019-02-02] MEDS ORDERED: NAPR375T44 PO (09:38)
[2019-02-02 09:55] VITALS: BP 138/88
== END 2019-02-02 09:57 | disposition home or self-care (01) ==
LOC: ER 08:35
DX: L03.313 Cellulitis of chest wall (principal)
CPT/HCPCS: 10060; 96372; 99283; J3490

== ENCOUNTER 2019-02-03 07:35 | Emergency (ER) | payer BC ==
[~2019-02-03 07:35] MED LIST changes: +NAPR375T44 PO
--- NOTE | 2019-02-03 07:48 | ER Report ---
History and Physical Time Seen By MD: 07:48 Hx. of Stated Complaint: infection check HPI/ROS CHIEF COMPLAINT: cellulitis HISTORY OF PRESENT ILLNESS: This is a 63 year old female. She is here in the ER today for her third visit in 3 days for an abscess and cellulitis. Yesterday, the abscess was drained and packed. She reports no fevers. The pain is not improving. The redness has been spreading outside the marking done two days ago. Overall, feels that it is not improving, but somewhat worse. Is on Clindamycin oral dosing, decreased to 3 times a day yesterday due to side effects of diarrhea, metalic taste and nausea. Very upset stomach with this medicine. Has history of severe allergic reaction to penicillin and cephalosporin. Has history of cellulitis that has been difficult to treat in the past and was hoping that we could admit her for IV antibiotic because of the concern for this worsening. REVIEW OF SYSTEMS: Respiratory: No cough, no dyspnea. Cardiovascular: No chest pain, no palpitations. Gastrointestinal: As above. Genitorurinary: No complaints Musculoskeletal: No musculoskeletal pain. Allergies: Coded Allergies: cefaclor (Verified Allergy, Severe, ANAPHYLAXIS, 02/03/19) cephalexin (Verified Allergy, Severe, ANAPHYLAXIS, 02/03/19) Penicillins (Verified Allergy, Mild, may have it in emergency only, 02/03/19) Shellfish (Verified Allergy, Mild, 02/03/19) Sulfa (Sulfonamide Antibiotics) (Verified Allergy, Mild, 02/03/19) bacitracin (Verified Allergy, Mild, 02/03/19) benzocaine (Verified Allergy, Mild, 02/03/19) butoconazole (Verified Allergy, Mild, 02/03/19) chlorpheniramine (Verified Allergy, Mild, 02/03/19) cimetidine (Verified Allergy, Mild, 02/03/19) erythromycin base (Verified Allergy, Mild, 02/03/19) gramicidin D (Verified Allergy, Mild, 02/03/19) hydrocodone (Verified Allergy, Mild, 02/03/19) hydromorphone (Verified Allergy, Mild, 02/03/19) latex (Verified Allergy, Mild, 02/03/19) menthol (Verified Allergy, Mild, 02/03/19) miconazole (Verified Allergy, Mild, 02/03/19) morphine (Verified Allergy, Mild, 02/03/19) neomycin (Verified Allergy, Mild, 02/03/19) oxycodone (Verified Allergy, Mild, 02/03/19) phenazopyridine (Verified Allergy, Mild, 02/03/19) phenol (Verified Allergy, Mild, 02/03/19) polymyxin B (Verified Allergy, Mild, 02/03/19) povidone-iodine (Verified Allergy, Mild, 02/03/19) prochlorperazine (Verified Allergy, Mild, 02/03/19) sertraline (Verified Allergy, Mild, 02/03/19) tramadol (Verified Allergy, Mild, 02/03/19) Cephalosporins (Verified Allergy, Unknown, 02/03/19) clarithromycin (Verified Adverse Reaction, Mild, LOW WBC COUNT, 02/03/19) Uncoded Allergies: LATEX (Allergy, Mild, 10/30/10) NUTRASWEET (Allergy, Mild, 07/10/10) Home Meds Active Scripts Naproxen (NAPROXEN) 375 Mg Tablet, 375 MG PO TID, #20 TAB 0 Refills Prov:MARLON AGUILAR MD 02/02/19 Clindamycin Hcl (CLINDAMYCIN HCL) 300 Mg Capsule, 300 MG PO Q6H, #40 CAPSULE 0 Refills Prov:MARLON AGUILAR MD 02/01/19 Reported Medications Aspirin (ASPIRIN) 81 Mg Tab.chew, 81 MG PO QDAY, TAB.CHEW 02/01/19 Lactobacillus Acidophilus (Acidophilus) 1 Each Tablet, 1 TAB PO DAILY 02/04/14 Nebivolol Hcl (BYSTOLIC) 2.5 Mg Tablet, 2.5 MG PO DAILY 02/04/14 Fexofenadine Hcl (DEMIAN ALLERGY) 60 Mg Tablet, 30 MG PO DAILY 02/04/14 Cholecalciferol (Vitamin D3) 5,000 Unit Tablet, 5000 UNIT PO DAILY, 0 Refills 12/03/11 Fluoxetine Hcl (Prozac) 20 Mg Cap, 20 MG PO QDAY, 0 Refills 12/03/11 Estradiol (Estrace) 0.5 Mg Tablet, 1 MG PO DAILY, 0 Refills 12/03/11 Levothyroxine Sodium (Synthroid/Levothroid) 0.175 Mg Tab, 200 MCG PO QDAY, 0 Refills 12/03/11 Discontinued Reported Medications [place]-3 Fatty Acids (Fish Oil) 1 Cap Capsule, 1 CAP PO BID, 0 Refills 12/03/11 Calcium Citrate/Vitamin D3 (Citracal + D Caplet) 1 Tab Tablet, 1 TAB PO BID, 0 Refills 12/03/11 Omeprazole Magnesium (Prilosec Otc) 20 Mg Tablet.dr, 20 MG PO QDAY PRN for DYSPEPSIA, 0 Refills 12/03/11 Discontinued Scripts Promethazine Hcl (PROMETHAZINE HCL) 25 Mg Tablet, 25 MG PO Q4H PRN for NAUSEA/VOMITING, #14 TAB Prov:ARLET ABAD DO 02/13/18 Ondansetron (ZOFRAN ODT) 4 Mg Tab.rapdis, 4 MG PO every 6 hours PRN for N AUSEA/VOMITING, #15 TAB TAKE 1 TABLET BY MOUTH EVERY 12 HOURS Prov:ARLET ABAD DO 02/13/18 Doxycycline Hyclate (DOXYCYCLINE HYCLATE) 100 Mg Capsule, 100 MG PO BID, #20 CAPSULE 0 Refills Prov:KENA CAR MD 05/09/15 Reviewed Nurses Notes: Yes Hx Smoking: Yes Smoking Status: Former Smoker Exposure to Second Hand Smoke?: No Hx Substance Use Disorder: No Hx Alcohol Use: No Constitutional Vital Sign - Last 24 Hours 02/03/19 02/03/19 02/03/19 02/03/19 07:40 07:45 08:00 08:01 Temp 98.5 98.1 Pulse 66 Resp 14 B/P (MAP) 134/83 (100) 134/83 127/80 (96) Pulse Ox 94 O2 Delivery Room Air 02/03/19 02/03/19 02/03/19 02/03/19 08:05 08:35 08:40 09:01 Pulse 65 64 64 B/P (MAP) 147/89 (108) Pulse Ox 90 92 89 02/03/19 02/03/19 02/03/19 02/03/19 09:10 09:30 09:40 12:40 Temp 97.9 Pulse 63 65 64 Resp 14 B/P (MAP) 166/81 (109) 139/72 (94) Pulse Ox 91 93 93 Physical Exam General Appearance: The patient is alert and no current signs of toxicity. Eyes: Pupils equal and round no injection. ENT: Normal oral mucosa. Moist mucous membranes. Respiratory: Breathing easily. Cardiac: Regular rate and rhythm. Musculoskeletal: Non tender. Skin: Has area of cellulitis below the left arm. Dressing removed, soaked with purulent and bloody material. Packing removed. No fluctuent area. about 1.5 inches of 0.25 packing placed and redressed. Marked area from 2 days ago still shows redness and extending about 3cm outside of the area inferior half. Very tender to palpation of the area and warm to the touch compared to surrounding skin. DIFFERENTIAL DIAGNOSIS: After history and physical exam differential diagnosis was considered for ongoing cellulitis. We will obtain and IV and labs and discuss admission. Medical Decision Making Data Points Result Diagram: 02/03/19 0821 02/03/19 0821 Laboratory Hematology Test 02/03/19 08:21 Red Blood Count 4.38 M/uL (4.17-5.56) Mean Corpuscular Volume 89.3 fL (80.0-96.0) Mean Corpuscular Hemoglobin 29.8 pg (26.0-33.0) Mean Corpuscular Hemoglobin Concent 33.4 g/dL (32.0-36.0) Red Cell Distribution Width 13.4 % (11.5-14.5) Mean Platelet Volume 7.8 fL (7.2-11.1) Neutrophils (%) (Auto) 68.4 % (39.4-72.5) Lymphocytes (%) (Auto) 20.0 % (17.6-49.6) Monocytes (%) (Auto) 7.2 % (4.1-12.4) Eosinophils (%) (Auto) 3.5 % (0.4-6.7) Basophils (%) (Auto) 0.9 % (0.3-1.4) Nucleated RBC Relative Count (auto) 0.0 /100WBC Neutrophils # (Auto) 4.8 K/uL (2.0-7.4) Lymphocytes # (Auto) 1.4 K/uL (1.3-3.6) Monocytes # (Auto) 0.5 K/uL (0.3-1.0) Eosinophils # (Auto) 0.2 K/uL (0.0-0.5) Basophils # (Auto) 0.1 K/uL (0.0-0.1) Nucleated RBC Absolute Count (auto) 0.00 K/uL Erythrocyte Sedimentation Rate 23 mm/HOUR (0-30) Sodium Level 136 mmol/L (137-145) Potassium Level 4.2 mmol/L (3.5-5.0) Chloride Level 105 mmol/L (98-107) Carbon Dioxide Level 23 mmol/L (22-31) Blood Urea Nitrogen 25 mg/dl (7-18) Creatinine 1.20 mg/dl (0.52-1.04) Glomerular Filtration Rate Calc 45.7 Random Glucose 124 mg/dl (75-110) Calcium Level 8.8 mg/dl (8.4-10.2) Total Bilirubin 0.5 mg/dl (0.2-1.3) Aspartate Amino Transf (AST/SGOT) 24 U/L (0-35) Alanine Aminotransferase (ALT/SGPT) 28 U/L (0-56) Alkaline Phosphatase 108 U/L (0-126) C-Reactive Protein 7.7 mg/dl (<1.0) Total Protein 6.6 g/dl (6.3-8.2) Albumin 3.7 g/dl (3.5-5.0) Chemistry Test 02/03/19 08:21 White Blood Count 7.0 k/uL (4.5-11.0) Red Blood Count 4.38 M/uL (4.17-5.56) Hemoglobin 13.0 g/dL (12.0-16.0) Hematocrit 39.1 % (34.0-47.0) Mean Corpuscular Volume 89.3 fL (80.0-96.0) Mean Corpuscular Hemoglobin 29.8 pg (26.0-33.0) Mean Corpuscular Hemoglobin Concent 33.4 g/dL (32.0-36.0) Red Cell Distribution Width 13.4 % (11.5-14.5) Platelet Count 256 K/uL (150-450) Mean Platelet Volume 7.8 fL (7.2-11.1) Neutrophils (%) (Auto) 68.4 % (39.4-72.5) Lymphocytes (%) (Auto) 20.0 % (17.6-49.6) Monocytes (%) (Auto) 7.2 % (4.1-12.4) Eosinophils (%) (Auto) 3.5 % (0.4-6.7) Basophils (%) (Auto) 0.9 % (0.3-1.4) Nucleated RBC Relative Count (auto) 0.0 /100WBC Neutrophils # (Auto) 4.8 K/uL (2.0-7.4) Lymphocytes # (Auto) 1.4 K/uL (1.3-3.6) Monocytes # (Auto) 0.5 K/uL (0.3-1.0) Eosinophils # (Auto) 0.2 K/uL (0.0-0.5) Basophils # (Auto) 0.1 K/uL (0.0-0.1) Nucleated RBC Absolute Count (auto) 0.00 K/uL Erythrocyte Sedimentation Rate 23 mm/HOUR (0-30) Glomerular Filtration Rate Calc 45.7 Calcium Level 8.8 mg/dl (8.4-10.2) Total Bilirubin 0.5 mg/dl (0.2-1.3) Aspartate Amino Transf (AST/SGOT) 24 U/L (0-35) Alanine Aminotransferase (ALT/SGPT) 28 U/L (0-56) Alkaline Phosphatase 108 U/L (0-126) C-Reactive Protein 7.7 mg/dl (<1.0) Total Protein 6.6 g/dl (6.3-8.2) Albumin 3.7 g/dl (3.5-5.0) ED Course/Re-evaluation Clinical Indication for ER IV: IV Access ED Course I did remove the dressing and remove the old packing and placed a small amount of new packing as noted above. The patient would like to be admitted to the hospital but because of lack of bed availability, we instead arranged outpatient IV antibiotics. We will switch from clindamycin to vancomycin at this point. We will do twice a day based on pharmacy recommendation for dosing. First dose given here in the ER. She will have another dose tonight at special procedures. She will return to the ER tomorrow morning for reevaluation. I did take a couple of pictures of the cellulitis with her phone so that that picture is available for comparison evaluation tomorrow. We also discussed the possibility of needing a PICC line if she needs prolonged antibiotics, but for now we will stick with a peripheral IV, and they can decide tomorrow if she needs further evaluation. Decision to Disposition Date: Feb 03, 2019 Decision to Disposition Time: 11:42 Depart Departure Latest Vital Signs Vital Signs Date Time Temp Pulse Resp B/P (MAP) Pulse Ox O2 Delivery O2 Flow Rate FiO2 02/03/19 12:40 97.9 64 14 139/72 (94) 93 02/03/19 07:45 Room Air Impression: Primary Impression: Cellulitis of left axilla Condition: Improved Disposition: HOME OR SELF-CARE Referrals: STACI MCINTOSH DO (PCP) Patient Instructions: Cellulitis (ED) Additional Instructions: We will begin doing IV Vancomycin. Planned twice a day and will be adjusted by pharmacy. Return tomorrow for re-evaluation here in the ER, sooner for worsening symptoms. KENA CAR MD Feb 03, 2019 07:48
[2019-02-03 08:28] LABS: PLATELET COUNT, AUTOMATED 256 K/uL (150-450)
[2019-02-03] MEDS ORDERED: VANCOMYCIN(*) 1 GM VIAL 2.5 GM in NS(*) 0.9% 250 ML BAG 250 ML IVPB ONE (10:10)
[2019-02-03] MEDS ORDERED: VANCOMYCIN(*) 1 GM VIAL 2 GM, VANCOMYCIN (*) 0.5 GM VIAL 0.5 GM in NS(*) 0.9% 500 ML BA... IVPB ONE (10:30)
[2019-02-03 12:40] VITALS: BP 139/72
== END 2019-02-03 13:49 | disposition home or self-care (01) ==
LOC: ER 07:46
DX: L03.112 Cellulitis of left axilla (principal)
CPT/HCPCS: 85025; 85651; 86140; 96365; 96366; 99283; J3370; J7040; 82040; 82247; 82310; 82374; 82435; 82565; 82947; 84075; 84132; 84155; 84295; 84450; 84460; 84520

== ENCOUNTER 2019-02-03 12:08 | Outpatient (RCR) | payer BC ==
[2019-02-03 22:30] VITALS: BP 144/87
[2019-02-03] MEDS ORDERED: VANCOMYCIN(*) 1 GM VIAL 1 GM, VANCOMYCIN (*) 0.5 GM VIAL 0.5 GM in NS(*) 0.9% 250 ML BA... IVPB SCH (22:30)
[2019-02-03] MEDS ORDERED: NS(*) 0.9% 100 ML BAG 100 ML ONE (22:31)
[2019-02-04] MEDS ORDERED: diphenhydrAMINE 50 MG/ML VIAL IVP ONE (00:10)
--- NOTE | 2019-02-04 00:11 | NUR ---
PATIENT REPORTED FEELING "ITCHY ALL OVER" ON OBSERVATION NOTED A SMALL RASH ON RIGHT FOREARM AND RIGHT ANTERIOR CHEST. CONTACTED ARLET ABAD MD IN THE ER AND ADMINISTERED 12.5MG IV BENADRYL ONCE. OBSERVED PATIENT AND NO FURTHER ISSUES NOTED, ADVISED PATIENT TO RETURN TO THE ER WITH WORSENING SYMPTOMS. STOPPED VANCOMYCIN INFUSION AFTER INFUSING 190ML OF THE 250ML BAG
[2019-02-04 00:21] VITALS: BP 161/84
--- NOTE | 2019-02-04 20:35 | Pharmacy Note ---
Vancomycin Management Note Vanco Dosing Note Pharmacy Services Pharmacokinetic Dosing Consult, Vancomycin Pharmacy has been consulted for dosing and monitoring of vancomycin for 63 year old female for cellulitis with outpatient abx failure. Pertinent Past Medical History: recent outpatient treatment/failure of this cellulitis Antibiotics prior to admission; clindamycin Additional Antimicrobials: None currently Patient Information: Height (cm): 172.7 Actual Body Weight (ABW): 145.2 kg Pertinent Lab Tests WHITE BLOOD COUNT 7 NEUTROPHILS 68.4% BLOOD UREA NITROGEN 25 SCR 1.2 Culture Results: BLOOD * URINE * SPUTUM * WOUND * Assessment: CrCl ~65 ml/min Renal function is stable Vancomycin Monitoring Assessment Goal Vancomycin Trough Level: 15-20 Plan: 1) Vancomycin 25 mg/kg loading dose (based on ABW): 2500 mg IV x 1 2) Vancomycin maintenance dose (based on ABW): 1500mg Q12H to start as this patient is obese and has baseline decreased renal function. 3) Vancomycin monitoring: vanco trough and SrCr ordered for 02/05/19 at 0800 Pharmacy will continue to monitor daily and adjust regimen as appropriate. Thank you for the consult. AISHA ROMERO Feb 04, 2019 20:35
[2019-02-04] MEDS ORDERED: VANCOMYCIN(*) 1 GM VIAL 1 GM, VANCOMYCIN (*) 0.5 GM VIAL 0.5 GM in NS(*) 0.9% 250 ML BA... IVPB SCH (21:00)
== END 2019-02-05 13:30 | disposition home or self-care (01) ==
LOC: SPU 12:08
PROVIDERS: ATTEND Family Medicine
DX: L03.90 Cellulitis, unspecified (principal)
CPT/HCPCS: 80202; 96365; J1200; J3370

== ENCOUNTER 2019-02-04 08:35 | Emergency (ER) | payer BC ==
[2019-02-04] MEDS ORDERED: VANCOMYCIN(*) 1 GM VIAL 2 GM in NS(*) 0.9% 500 ML BAG 500 ML IVPB ONE (08:55)
[2019-02-04] MEDS ORDERED: diphenhydrAMINE 50 MG/ML VIAL IVP ONE (09:00)
--- NOTE | 2019-02-04 09:10 | ER Report ---
History and Physical Time Seen By MD: 08:50 Hx. of Stated Complaint: HERE FOR RECHECK OF CELLULITIS IN LEFT AXILLA. WAS AT [facility] LAST NIGHT AND HAD A REACTION WITH HIVES AND SEVERE ITCHING. IV IN PLACE IN THE RIGHT SHOULDER HPI/ROS CHIEF COMPLAINT: Allergic reaction HISTORY OF PRESENT ILLNESS: Patient is a 63-year-old female comes back to the emergency department with an obvious left axillary abscess. Patient states that she's been on multiple medications has a long history of various allergies and has had anaphylactic reactions in the past. Patient is getting currently switched from her clindamycin and vancomycin having some improvement with her symptoms however noted with the last lincomycin dosing that she had an itchy scalp and rash that had formed was concerned about this being another allergic reaction was unable to be admitted so she went home comes back in today once at evaluation of the abscess itself and is concerned about getting the vancomycin dosing without there being some type medical oversight supervision due to her extensive allergy history REVIEW OF SYSTEMS: Respiratory: No cough, no dyspnea. Cardiovascular: No chest pain, no palpitations. Gastrointestinal: No vomiting, no abdominal pain. Musculoskeletal: No back pain. Remainder of the 14 system rev: Yes Allergies: Coded Allergies: cefaclor (Verified Allergy, Severe, ANAPHYLAXIS, 02/03/19) cephalexin (Verified Allergy, Severe, ANAPHYLAXIS, 02/03/19) Penicillins (Verified Allergy, Mild, may have it in emergency only, 02/03/19) Shellfish (Verified Allergy, Mild, 02/03/19) Sulfa (Sulfonamide Antibiotics) (Verified Allergy, Mild, 02/03/19) bacitracin (Verified Allergy, Mild, 02/03/19) benzocaine (Verified Allergy, Mild, 02/03/19) butoconazole (Verified Allergy, Mild, 02/03/19) chlorpheniramine (Verified Allergy, Mild, 02/03/19) cimetidine (Verified Allergy, Mild, 02/03/19) erythromycin base (Verified Allergy, Mild, 02/03/19) gramicidin D (Verified Allergy, Mild, 02/03/19) hydrocodone (Verified Allergy, Mild, 02/03/19) hydromorphone (Verified Allergy, Mild, 02/03/19) latex (Verified Allergy, Mild, 02/03/19) menthol (Verified Allergy, Mild, 02/03/19) miconazole (Verified Allergy, Mild, 02/03/19) morphine (Verified Allergy, Mild, 02/03/19) neomycin (Verified Allergy, Mild, 02/03/19) oxycodone (Verified Allergy, Mild, 02/03/19) phenazopyridine (Verified Allergy, Mild, 02/03/19) phenol (Verified Allergy, Mild, 02/03/19) polymyxin B (Verified Allergy, Mild, 02/03/19) povidone-iodine (Verified Allergy, Mild, 02/03/19) prochlorperazine (Verified Allergy, Mild, 02/03/19) sertraline (Verified Allergy, Mild, 02/03/19) tramadol (Verified Allergy, Mild, 02/03/19) Cephalosporins (Verified Allergy, Unknown, 02/03/19) clarithromycin (Verified Adverse Reaction, Mild, LOW WBC COUNT, 02/03/19) Uncoded Allergies: LATEX (Allergy, Mild, 10/30/10) NUTRASWEET (Allergy, Mild, 07/10/10) Home Meds Active Scripts Naproxen (NAPROXEN) 375 Mg Tablet, 375 MG PO TID, #20 TAB 0 Refills Prov:MARLON AGUILAR MD 02/02/19 Clindamycin Hcl (CLINDAMYCIN HCL) 300 Mg Capsule, 300 MG PO Q6H, #40 CAPSULE 0 Refills Prov:MARLON AGUILAR MD 02/01/19 Reported Medications Aspirin (ASPIRIN) 81 Mg Tab.chew, 81 MG PO QDAY, TAB.CHEW 02/01/19 Lactobacillus Acidophilus (Acidophilus) 1 Each Tablet, 1 TAB PO DAILY 02/04/14 Nebivolol Hcl (BYSTOLIC) 2.5 Mg Tablet, 2.5 MG PO DAILY 02/04/14 Fexofenadine Hcl (DEMIAN ALLERGY) 60 Mg Tablet, 30 MG PO DAILY 02/04/14 Cholecalciferol (Vitamin D3) 5,000 Unit Tablet, 5000 UNIT PO DAILY, 0 Refills 12/03/11 Fluoxetine Hcl (Prozac) 20 Mg Cap, 20 MG PO QDAY, 0 Refills 12/03/11 Estradiol (Estrace) 0.5 Mg Tablet, 1 MG PO DAILY, 0 Refills 12/03/11 Levothyroxine Sodium (Synthroid/Levothroid) 0.175 Mg Tab, 200 MCG PO QDAY, 0 Refills 12/03/11 Discontinued Reported Medications [place]-3 Fatty Acids (Fish Oil) 1 Cap Capsule, 1 CAP PO BID, 0 Refills 12/03/11 Calcium Citrate/Vitamin D3 (Citracal + D Caplet) 1 Tab Tablet, 1 TAB PO BID, 0 Refills 12/03/11 Omeprazole Magnesium (Prilosec Otc) 20 Mg Tablet.dr, 20 MG PO QDAY PRN for DYSPEPSIA, 0 Refills 12/03/11 Discontinued Scripts Promethazine Hcl (PROMETHAZINE HCL) 25 Mg Tablet, 25 MG PO Q4H PRN for NAUSEA/VOMITING, #14 TAB Prov:JENNIFFERARLET Wolff DO 02/13/18 Ondansetron (ZOFRAN ODT) 4 Mg Tab.rapdis, 4 MG PO every 6 hours PRN for NAUSEA/VOMITING, #15 TAB TAKE 1 TABLET BY MOUTH EVERY 12 HOURS Prov:JENNIFFERARLET DO 02/13/18 Doxycycline Hyclate (DOXYCYCLINE HYCLATE) 100 Mg Capsule, 100 MG PO BID, #20 CAPSULE 0 Refills Prov:KENA CAR MD 05/09/15 Reviewed Nurses Notes: Yes Old Medical Records Reviewed: Yes Hx Smoking: Yes Smoking Status: Former Smoker Exposure to Second Hand Smoke?: No Hx Substance Use Disorder: No Hx Alcohol Use: No Constitutional Vital Sign - Last 24 Hours 02/04/19 08:39 Temp 98.0 Pulse 62 Resp 16 B/P (MAP) 161/98 Pulse Ox 92 O2 Delivery Room Air Physical Exam General Appearance: The patient is alert, has no immediate need for airway protection and no current signs of toxicity. Signs of distress Eyes: Pupils equal and round no injection. Respiratory: Chest is non tender, lungs are clear to auscultation. Cardiac: regular rate and rhythm [ ] Gastrointestinal: Abdomen is soft and non tender, no masses, bowel sounds normal. Musculoskeletal: Neck: Neck is supple and non tender. Extremities have full range of motion and are non tender. Skin: Left axillary abscess with at normal appearance shows a receding of the cellulitic area mild induration but no fluctuance wound is improved subsequently since induction of the vancomycin [ ] DIFFERENTIAL DIAGNOSIS: After history and physical exam differential diagnosis was considered for allergic reaction cellulitic Medical Decision Making ED Course/Re-evaluation ED Course ED clinical course [id number] female presents to emergency department today long history of reactions to antibiotics currently on vancomycin patient was concerned about having a reaction to vancomycin when she had a rash last time she took it gave her by mouth Benadryl she subsequently was able to get her infusion with no adverse outcome oriented go ahead and have a PICC line placed for for convenience and safety patient will have the wound check evaluated impact to replace if indicated patient will continue on her vancomycin and follow up with primary care return if symptoms worsen Decision to Disposition Date: Feb 04, 2019 Decision to Disposition Time: 11:05 Depart Departure Latest Vital Signs Vital Signs Date Time Temp Pulse Resp B/P (MAP) Pulse Ox O2 Delivery O2 Flow Rate FiO2 02/04/19 08:39 98.0 62 16 161/98 92 Room Air Impression: Primary Impression: Cellulitis of left axilla Condition: Improved Disposition: HOME OR SELF-CARE Referrals: STACI MCINTOSH DO (PCP) 5 Days Patient Instructions: Cellulitis (DC) CLAUDIA TIM MD Feb 04, 2019 09:10
[2019-02-04] MEDS ORDERED: LIDOCAINE MPF 1% 5 ML VIAL ONE (11:10)
[2019-02-04 12:20] VITALS: BP 154/92
--- NOTE | 2019-02-04 17:47 | RADIOLOGY IMAGING REPORT ---
FACILITY: [facility] - [place] PATIENT NAME: Floridalma Santos : 1955 MR: [id number] V: [id number] EXAM DATE: ORDERING PHYSICIAN: CLAUDIA TIM TECHNOLOGIST: [place] [facility] [place] Patient: Floridalma Santos : 1955 Visit/Account:[id number] Date of Sevice: 02/04/2019 ADDENDUM #1 ADDENDUM: The PICC line was secured to the arm with a stay fix device. Report Dictated By: Rafi Deluna MD at 02/04/2019 5:47 PM Report E-Signed By: Rafi Deluna MD at 02/04/2019 5:47 PM ORIGINAL REPORT PICC LINE INSERTION HISTORY: vanc therapy TECHNIQUE: The skin over the left arm was prepped draped and anesthetized 1% lidocaine. Utilizing ultrasound gu idance a 22-gauge needle was advanced into the left brachial vein. A permanent image of the needle w ithin the vein was sent to PACS for permanent archiving. An 018 wire was advanced to the cavoatrial junction. A peel-away sheath was placed. A PICC line was then advanced with the distal tip at the c avoatrial junction. Fluoroscopic image was sent to PACS documenting position. IMPRESSION: 1. Successful placement of a PICC with distal tip at the cavoatrial junction. Fluoroscopic time of 1.3 minutes. AK 13.6mGy Report Dictated By: Rafi Deluna MD at 02/04/2019 5:40 PM Report E-Signed By: Rafi Deluna MD at 02/04/2019 5:44 PM WSN:[email or web address]
[2019-02-04] MEDS ORDERED: diphenhydrAMINE 50 MG/ML VIAL ONE (21:11)
--- NOTE | 2019-02-05 08:46 | RADIOLOGY IMAGING REPORT ---
FACILITY: [facility] - [place] PATIENT NAME: Floridalma Santos : 1955 MR: [id number] V: [id number] EXAM DATE: ORDERING PHYSICIAN: CLAUDIA TIM TECHNOLOGIST: Location: [facility] Patient: Floridalma Santos : 1955 Visit/Account:[id number] Date of Sevice: 02/04/2019 US GUIDANCE VASCULAR ACCESS HISTORY: vanc therapy Ultrasound guidance was utilized to gain entrance left brachial vein. An image documenting needle po sition was sent to PACS for permanent archiving. IMPRESSION: Ultrasound utilization for entry into the left brachial vein. Report Dictated By: Rafi Deluna MD at 02/04/2019 5:44 PM Report E-Signed By: Rafi Deluna MD at 02/05/2019 8:41 AM WSN:[email or web address]
== END 2019-02-04 12:20 | disposition home or self-care (01) ==
LOC: ER 08:59
DX: L03.112 Cellulitis of left axilla (principal)
CPT/HCPCS: 36573; 96374; 99284; C1751; J1200; J2001; J3370; J7040

== ENCOUNTER 2019-02-09 08:17 | Outpatient (RCR) | payer BC ==
[2019-02-04] MEDS: diphenhydrAMINE 50 MG/ML VIAL IVP PRN (22:00)
[2019-02-04] MEDS: VANCOMYCIN(*) 1 GM VIAL 1 GM, VANCOMYCIN (*) 0.5 GM VIAL 0.5 GM in NS(*) 0.9% 250 ML BA... IVPB SCH (22:05)
[2019-02-05 08:30] VITALS: BP 137/83
[2019-02-05] MEDS: NS(*) 0.9% 100 ML BAG 100 ML IVPB PRN (09:00)
--- NOTE | 2019-02-05 09:55 | NUR ---
PT received order to consult on pt in [facility]. Pt presents with wound under the axilla of the L) side. This wound was an abscess that was lanced by the [facility] ED (please see EMR for details). Wound was packed on 02/03/19 and RN removed packing this AM, with moderate drainage present. Wound is 0.5 cm L x 0.7 cm W x 2 cm D, with undermining of 1 cm from 6-12 o clock. Mild epibole of wound edges. PT cleansed the wound with sterile saline and no purulent drainage was expressed, mild induration distal to the wound but redness has improved from marking on pt's skin. PT completed conservative, selective debridement of wound edges with tweezers to the depth of the dermis in order to address mild epibole of wound edges. PT gently packed the wound with 0.25 inch gauze and then covered the wound with a silicone bordered dressing. Plan for PT to check dressing tomorrow AM and then direct nursing staff in appropriate frequency of dressing changes. Pt educated on maintaining dressing clean, dry and intact. No further concerns at end of session.
[2019-02-05] MEDS: diphenhydrAMINE 50 MG/ML VIAL IVP PRN ×2 (10:04→21:09)
[2019-02-05] MEDS: VANCOMYCIN(*) 1 GM VIAL 1 GM, VANCOMYCIN (*) 0.5 GM VIAL 0.5 GM in NS(*) 0.9% 250 ML BA... IVPB SCH ×2 (10:13→21:22)
[2019-02-05 11:41] VITALS: BP 138/80
[2019-02-05 21:06] VITALS: BP 140/76
[2019-02-05] MEDS: NS(*) 0.9% 500 ML BAG 500 ML IV PRN (21:10)
[2019-02-05 23:39] VITALS: BP 148/72
[2019-02-06 08:22] VITALS: BP 136/88
[2019-02-06] MEDS: NS(*) 0.9% 100 ML BAG 100 ML IVPB PRN (09:14)
[2019-02-06] MEDS: VANCOMYCIN(*) 1 GM VIAL 1 GM, VANCOMYCIN (*) 0.5 GM VIAL 0.25 GM in NS(*) 0.9% 250 ML B... IVPB SCH ×2 (09:15→21:00)
[2019-02-06] MEDS: diphenhydrAMINE 50 MG/ML VIAL IVP PRN ×2 (09:19→21:08)
[2019-02-06] MEDS: VANCOMYCIN(*) 1 GM VIAL 1 GM, VANCOMYCIN (*) 0.5 GM VIAL 0.5 GM in NS(*) 0.9% 250 ML BA... IVPB ONE (09:52)
--- NOTE | 2019-02-06 10:30 | Pharmacy Note ---
Vancomycin Management Note Vanco Dosing Note Patient is on vancomycin for cellulitis, pharmacy monitoring and adjusting doses. Antimicrobials: Vancomycin 1500 mg every 12 hours, Day 4 Pertinent Lab Tests WHITE BLOOD COUNT * NEUTROPHILS * BLOOD UREA NITROGEN * SCR 1.2 VANCOMYCIN TROUGH 24.35 Culture Results: BLOOD * URINE * SPUTUM * WOUND * Assessment: CrCl ~70ml/min Renal function is stable Vancomycin Monitoring Assessment: Goal Vancomycin Trough Level: 15-20 mcg/ml Plan: 1) Vancomycin dose: Decrease dose to 1250 mg every 12 hours based on trough of 24 2) Vancomycin monitoring: A level will be ordered for 02/08/19 at 0800 1 hour before the 0900 dose. Final dose will be 02/09/19 at 2100 to complete a total of 7 days treatment as ordered. Pharmacy will continue to monitor daily and adjust regimen as appropriate. AISHA ROMERO Feb 06, 2019 10:30
[2019-02-06 11:29] VITALS: BP 158/91
[2019-02-06 20:59] VITALS: BP 156/87
[2019-02-06 23:33] VITALS: BP 139/80
[2019-02-07 09:00] VITALS: BP 132/82
[2019-02-07] MEDS: diphenhydrAMINE 50 MG/ML VIAL IVP PRN ×2 (09:19→21:09)
[2019-02-07] MEDS: NS(*) 0.9% 100 ML BAG 100 ML IVPB PRN (09:30)
[2019-02-07] MEDS: VANCOMYCIN(*) 1 GM VIAL 1 GM, VANCOMYCIN (*) 0.5 GM VIAL 0.25 GM in NS(*) 0.9% 250 ML B... IVPB SCH ×2 (09:39→21:08)
[2019-02-07 11:13] VITALS: BP 139/76
[2019-02-07] MEDS: NS(*) 0.9% 500 ML BAG 500 ML IV PRN (21:06)
[2019-02-07 21:21] VITALS: BP 186/94
[2019-02-07 23:09] VITALS: BP 142/86
[2019-02-08 08:30] VITALS: BP 146/81
[2019-02-08] MEDS: NS(*) 0.9% 500 ML BAG 500 ML IV PRN (08:35)
--- NOTE | 2019-02-08 19:11 | Pharmacy Note ---
Vancomycin Management Note Vanco Dosing Note Vancomycin TR on 02/08/19 was 28.57 so held both doses for 02/08/19. Next Tr on 02/09/19 0800. I believe that Saturday02/09/19 is the last day of treatment so depending on Tr level may only need one more dose. A serum creatinine was supposed to be drawn as well this am and was in order history but it was not done. BEKAH De La Paz RPh Feb 08, 2019 19:11
[~2019-02-09 08:17] MED LIST changes: +ALTEPLASE RECOMB 2 MG VIAL IVP PRN; +DEXTROSE 5%(*) 100 ML BAG 100 ML IVPB PRN; +VANCOMYCIN(*) 1 GM VIAL 1 GM, VANCOMYCIN (*) 0.5 GM VIAL 0.5 GM in NS(*) 0.9% 250 ML BA... IVPB SCH; +WATER FOR INJ,STERILE 20 ML IVP PRN
[2019-02-09 08:28] VITALS: BP 166/82
[2019-02-09] MEDS: diphenhydrAMINE 50 MG/ML VIAL IVP PRN (09:18)
[2019-02-09] MEDS: NS(*) 0.9% 100 ML BAG 100 ML IVPB PRN (09:32)
[2019-02-09] MEDS: VANCOMYCIN(*) 1 GM VIAL 1 GM, VANCOMYCIN (*) 0.5 GM VIAL 0.5 GM in NS(*) 0.9% 250 ML BA... IVPB ONE (09:51)
[2019-02-09] MEDS: VANCOMYCIN(*) 1 GM VIAL 1 GM, VANCOMYCIN (*) 0.5 GM VIAL 0.25 GM in NS(*) 0.9% 250 ML B... IVPB SCH (09:55)
[2019-02-09 11:38] VITALS: BP 162/83
[2019-02-09] MEDS ORDERED: VANCOMYCIN(*) 1 GM VIAL 1 GM, VANCOMYCIN (*) 0.5 GM VIAL 0.25 GM in NS(*) 0.9% 250 ML B... IVPB SCH (21:00)
--- NOTE | 2019-02-10 11:21 | NUR ---
02/04/19 2100 visit by Ms. Santos was documented on paper by Will Salinas RN and Lizbeth Alexander, RN and transcribed to EHR by Lizbeth Hinojosa RNC. PICC line assessed, buffalo cap was not in place. Radiologist called and site cleansed internally and externally as instructed by Radiologist. 10cc blood withdrawn before flushing line. Cap placed, PICC flushed, and medications infused without complications. [facility] as scheduled for lab draws, medication, and dressing change.
[2019-02-13] MEDS ORDERED: FLU150 PO (09:54)
== END 2019-04-13 16:37 | disposition home or self-care (01) ==
LOC: SPU 08:17
PROVIDERS: ATTEND Emergency Medicine
DX: L03.112 Cellulitis of left axilla (principal)
CPT/HCPCS: 36415; 80202; 82565; 96365; 96366; 96374; 96375; 97164; J1200; J1642; J3370; J7040; J7050

== ENCOUNTER 2019-02-12 08:48 | Outpatient (RCR) | payer BC ==
[2019-02-09 21:14] VITALS: BP 157/89
[2019-02-09] MEDS: VANCOMYCIN(*) 1 GM VIAL 1 GM, VANCOMYCIN (*) 0.5 GM VIAL 0.25 GM in NS(*) 0.9% 250 ML B... IVPB SCH (21:18)
--- NOTE | 2019-02-09 21:32 | NUR ---
Patient ambulated to floor independently without issues. Placed in room 2276. Denies any needs or concerns at this time. Benadryl given per orders. Patient afebrile at this time. Addendum: 02/09/19 at 2216 by ALICIA FLYNN RN Dressing CDI. PICC flushed easily and blood return received. ABT started without issues. Patient currently sitting in chair, watching TV A/O x4, denies any needs or concerns. No s/s of adverse reactions noted, patient denies any s/s of adverse reactions at this time. Addendum: 02/09/19 at 2318 by ALICIA FLYNN RN Infusion completed at this time. Patient reported approximately 30mins ago legs being "itchy" r/t to "almost like restless leg syndrome." Lotion applied d/t dry legs with some improvement. Denies feeling like an allergic reaction. Able to ambulate independently to POV without issues. Addendum: 02/09/19 at 2329 by ALICIA FLYNN RN Patient checked for s/s of adverse reaction, no rash/hives, denies SOB. On walk to POV report the feeling in her legs as been happening every couple of days and last happened 3 days ago. Encouraged if anything changes to return to hospital. Refused more Benadryl, when asked. Inquired if patient had Benadryl at home, patient stated she did and would take some if she needed.
[2019-02-09 23:13] VITALS: BP 140/85
[2019-02-10] MEDS: diphenhydrAMINE 50 MG/ML VIAL IVP PRN ×2 (09:05→21:41)
[2019-02-10 09:11] VITALS: BP 158/88
[2019-02-10] MEDS: NS(*) 0.9% 100 ML BAG 100 ML IVPB PRN (09:20)
[2019-02-10] MEDS: VANCOMYCIN(*) 1 GM VIAL 1 GM, VANCOMYCIN (*) 0.5 GM VIAL 0.25 GM in NS(*) 0.9% 250 ML B... IVPB SCH ×2 (09:21→21:00)
[2019-02-10 10:50] VITALS: BP 146/74
[2019-02-10 20:59] VITALS: BP 157/88
[2019-02-10] MEDS: NS(*) 0.9% 500 ML BAG 500 ML IV PRN (21:41)
[2019-02-11 00:04] VITALS: BP 158/98
[2019-02-11 08:17] VITALS: BP 129/88
[2019-02-11] MEDS: diphenhydrAMINE 50 MG/ML VIAL IVP PRN (09:14)
[2019-02-11] MEDS: VANCOMYCIN(*) 1 GM VIAL 1 GM, VANCOMYCIN (*) 0.5 GM VIAL 0.25 GM in NS(*) 0.9% 250 ML B... IVPB SCH ×2 (09:17→21:41)
[2019-02-11 11:10] VITALS: BP 134/77
[2019-02-11] MEDS: NS(*) 0.9% 100 ML BAG 100 ML IVPB PRN (11:12)
[2019-02-11 21:00] VITALS: BP 162/94
[2019-02-11] MEDS: NS(*) 0.9% 500 ML BAG 500 ML IV PRN (21:21)
[2019-02-11 23:42] VITALS: BP 148/72
[~2019-02-12 08:48] MED LIST changes: -ALTEPLASE RECOMB 2 MG VIAL IVP PRN; +NS(*) 0.9% 250 ML BAG 0 ML ONE; -VANCOMYCIN(*) 1 GM VIAL 1 GM, VANCOMYCIN (*) 0.5 GM VIAL 0.5 GM in NS(*) 0.9% 250 ML BA... IVPB SCH; -WATER FOR INJ,STERILE 20 ML IVP PRN; +diphenhydrAMINE 50 MG/ML VIAL ONE
[2019-02-12 08:58] VITALS: BP 151/79
[2019-02-12] MEDS: diphenhydrAMINE 50 MG/ML VIAL IVP PRN ×2 (09:31→21:11)
[2019-02-12] MEDS: NS(*) 0.9% 100 ML BAG 100 ML IVPB PRN (09:45)
[2019-02-12] MEDS: VANCOMYCIN(*) 1 GM VIAL 1 GM, VANCOMYCIN (*) 0.5 GM VIAL 0.25 GM in NS(*) 0.9% 250 ML B... IVPB SCH ×2 (09:46→21:27)
[2019-02-12 11:25] VITALS: BP 148/85
[2019-02-12 21:02] VITALS: BP 148/79
[2019-02-12] MEDS: NS(*) 0.9% 500 ML BAG 500 ML IV PRN (21:08)
[2019-02-12 23:35] VITALS: BP 153/84
[2019-02-13] MEDS ORDERED: FLU150 PO (09:54)
== END 2019-04-13 16:37 | disposition home or self-care (01) ==
LOC: SPU 08:48
PROVIDERS: ATTEND Surgery
DX: L03.112 Cellulitis of left axilla (principal)
CPT/HCPCS: 80202; 96365; 96366; 96374; 96375; J1200; J3370; J7040; J7050

== ENCOUNTER 2019-04-18 18:08 | Emergency (ER) | payer BC ==
[~2019-04-18 18:08] MED LIST changes: -DEXTROSE 5%(*) 100 ML BAG 100 ML IVPB PRN; +FLU150 PO; -NS(*) 0.9% 250 ML BAG 0 ML ONE; -diphenhydrAMINE 50 MG/ML VIAL ONE
--- NOTE | 2019-04-18 18:19 | ER Report ---
History and Physical Time Seen By MD: 18:18 Hx. of Stated Complaint: Possible blood clot HPI/ROS CHIEF COMPLAINT: Possible blood clot HISTORY OF PRESENT ILLNESS: 63 year old female presents with concerns about a blood clot. Patient reports she started to have pain behind her knee after a 5 hour flight to [place] on March 28. Patient states that the pain has been dull and comes and goes. Patient states that today, approximately two hours prior to coming to the ED she started to feel a dull pain under her right scapula. She reports the pain is constant and feels internal. She denies SOB, chest pain, and heart palpitations. Patient has hx of hysterectomy and has been on estrogen for approximately 12 years. Recently she has seen a PA at a [facility] in [facility] for hormone therapy and was placed on progesterone and testosterone about a week prior to traveling to [place]. REVIEW OF SYSTEMS: Constitutional: No fevers. Respiratory: No cough, no dyspnea. Cardiovascular: No chest pain, no palpitations. Gastrointestinal: No vomiting, no abdominal pain. Musculoskeletal: Right subscapularis pain, dull, constant pain, and feels deep. Left posterior knee pain that is dull, not constant. Allergies: Coded Allergies: cefaclor (Verified Allergy, Severe, ANAPHYLAXIS, 04/18/19) cephalexin (Verified Allergy, Severe, ANAPHYLAXIS, 04/18/19) Penicillins (Verified Allergy, Mild, may have it in emergency only, 04/18/19) Shellfish (Verified Allergy, Mild, 02/03/19) Sulfa (Sulfonamide Antibiotics) (Verified Allergy, Mild, 04/18/19) bacitracin (Verified Allergy, Mild, 02/03/19) benzocaine (Verified Allergy, Mild, 02/03/19) butoconazole (Verified Allergy, Mild, 02/03/19) chlorpheniramine (Verified Allergy, Mild, 02/03/19) cimetidine (Verified Allergy, Mild, 02/03/19) erythromycin base (Verified Allergy, Mild, 04/18/19) gramicidin D (Verified Allergy, Mild, 02/03/19) hydrocodone (Verified Allergy, Mild, 04/18/19) hydromorphone (Verified Allergy, Mild, 02/03/19) latex (Verified Allergy, Mild, 02/03/19) menthol (Verified Allergy, Mild, 02/03/19) miconazole (Verified Allergy, Mild, 02/03/19) morphine (Verified Allergy, Mild, 04/18/19) neomycin (Verified Allergy, Mild, 02/03/19) oxycodone (Verified Allergy, Mild, 04/18/19) phenazopyridine (Verified Allergy, Mild, 02/03/19) phenol (Verified Allergy, Mild, 02/03/19) polymyxin B (Verified Allergy, Mild, 02/03/19) povidone-iodine (Verified Allergy, Mild, 02/03/19) prochlorperazine (Verified Allergy, Mild, 02/03/19) sertraline (Verified Allergy, Mild, 02/03/19) tramadol (Verified Allergy, Mild, 02/03/19) Cephalosporins (Verified Allergy, Unknown, 02/03/19) clarithromycin (Verified Adverse Reaction, Mild, LOW WBC COUNT, 02/03/19) Uncoded Allergies: LATEX (Allergy, Mild, 10/30/10) NUTRASWEET (Allergy, Mild, 07/10/10) codiene (Allergy, Unknown, 04/18/19) Home Meds Reported Medications Aspirin (ASPIRIN) 81 Mg Tab.chew, 81 MG PO QDAY, TAB.CHEW 02/01/19 Lactobacillus Acidophilus (Acidophilus) 1 Each Tablet, 1 TAB PO DAILY 02/04/14 Nebivolol Hcl (BYSTOLIC) 2.5 Mg Tablet, 2.5 MG PO DAILY 02/04/14 Fexofenadine Hcl (DEMIAN ALLERGY) 60 Mg Tablet, 30 MG PO DAILY 02/04/14 Cholecalciferol (Vitamin D3) 5,000 Unit Tablet, 5000 UNIT PO DAILY, 0 Refills 12/03/11 Fluoxetine Hcl (Prozac) 20 Mg Cap, 20 MG PO QDAY, 0 Refills 12/03/11 Estradiol (Estrace) 0.5 Mg Tablet, 1 MG PO DAILY, 0 Refills 12/03/11 Levothyroxine Sodium (Synthroid/Levothroid) 0.175 Mg Tab, 200 MCG PO QDAY, 0 Refills 12/03/11 Discontinued Scripts Fluconazole (FLUCONAZOLE) 150 Mg Tab, 1 TAB PO Q72H, #2 TAB 0 Refills Prov:LAURA MONDRAGON MD 02/13/19 Naproxen (NAPROXEN) 375 Mg Tablet, 375 MG PO TID, #20 TAB 0 Refills Prov:MARLON AGUILAR MD 02/02/19 Clindamycin Hcl (CLINDAMYCIN HCL) 300 Mg Capsule, 300 MG PO Q6H, #40 CAPSULE 0 Refills Prov:MARLON AGUILAR MD 02/01/19 Past Medical/Surgical History Past medical hx of HTN, GERD, stage 2 kidney disease, adrenal tumor, PCOS, endomitriosis, fibromyalgia, CONN syndrome, dangelo disorder, 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 Past surgical hx of T&A removal as a child, rhinoplasty 1973, gall bladder removal 1982, neck fusion 1990, shoulder surgery 1991, back surgery 1995, c- section 1999, hysterectomy 2000, adrenalectomy 2009, rectoceal repair, parathyroid removal. Reviewed Nurses Notes: Yes Hx Smoking: Yes Smoking Status: Former Smoker Exposure to Second Hand Smoke?: No Hx Substance Use Disorder: No Hx Alcohol Use: No Constitutional Vital Sign - Last 24 Hours 04/18/19 04/18/19 04/18/19 04/18/19 18:08 18:13 18:15 18:23 Temp 98.2 Pulse ??? 70 67 Resp 20 B/P (MAP) 146/77 146/77 (100) Pulse Ox 90 95 O2 Delivery Room Air 04/18/19 04/18/19 04/18/19 04/18/19 18:38 18:53 19:00 19:08 Pulse 65 60 ??? B/P (MAP) 144/61 (88) Pulse Ox 94 93 04/18/19 04/18/19 04/18/19 04/18/19 19:23 19:30 19:38 19:53 Pulse 60 54 53 B/P (MAP) 117/50 (72) Pulse Ox 91 91 91 04/18/19 04/18/19 04/18/19 04/18/19 19:58 20:00 20:13 20:28 Pulse 53 55 59 B/P (MAP) ???/??? (1665) Pulse Ox 91 91 89 04/18/19 04/18/19 20:30 20:43 Pulse 58 B/P (MAP) 121/49 (73) Pulse Ox 89 Physical Exam General Appearance: The patient is alert, has no immediate need for airway protection and no current signs of toxicity. Eyes: Pupils equal and round no injection. Respiratory: Chest is non tender, lungs are clear to auscultation. Cardiac: regular rate and rhythm Gastrointestinal: Abdomen is soft and non tender, no masses, bowel sounds normal. Musculoskeletal: Neck: Neck is supple and non tender. Extremities have full range of motion. Possible cyst palpable posterior aspect of left knee. Skin: No rashes or lesions. DIFFERENTIAL DIAGNOSIS: After history and physical exam differential diagnosis was considered for DVT, PE, muscle strain, cyst. Medical Decision Making Data Points Result Diagram: 04/18/198 04/18/198 Laboratory Hematology Test 04/18/19 18:18 Red Blood Count 4.80 M/uL (4.17-5.56) Mean Corpuscular Volume 89.0 fL (80.0-96.0) Mean Corpuscular Hemoglobin 30.2 pg (26.0-33.0) Mean Corpuscular Hemoglobin Concent 33.9 g/dL (32.0-36.0) Red Cell Distribution Width 13.4 % (11.5-14.5) Mean Platelet Volume 8.1 fL (7.2-11.1) Neutrophils (%) (Auto) 58.5 % (39.4-72.5) Lymphocytes (%) (Auto) 29.4 % (17.6-49.6) Monocytes (%) (Auto) 7.7 % (4.1-12.4) Eosinophils (%) (Auto) 3.4 % (0.4-6.7) Basophils (%) (Auto) 1.0 % (0.3-1.4) Nucleated RBC Relative Count (auto) 0.0 /100WBC Neutrophils # (Auto) 3.8 K/uL (2.0-7.4) Lymphocytes # (Auto) 1.9 K/uL (1.3-3.6) Monocytes # (Auto) 0.5 K/uL (0.3-1.0) Eosinophils # (Auto) 0.2 K/uL (0.0-0.5) Basophils # (Auto) 0.1 K/uL (0.0-0.1) Nucleated RBC Absolute Count (auto) 0.00 K/uL D-Dimer Quantitative (PE/DVT) 0.45 ug/ml (0-0.50) Sodium Level 139 mmol/L (137-145) Potassium Level 4.2 mmol/L (3.5-5.0) Chloride Level 104 mmol/L (98-107) Carbon Dioxide Level 26 mmol/L (22-31) Blood Urea Nitrogen 23 mg/dl (7-18) Creatinine 1.20 mg/dl (0.52-1.04) Glomerular Filtration Rate Calc 45.7 Random Glucose 100 mg/dl (75-110) Calcium Level 9.0 mg/dl (8.4-10.2) Total Bilirubin 0.5 mg/dl (0.2-1.3) Aspartate Amino Transf (AST/SGOT) 33 U/L (0-35) Alanine Aminotransferase (ALT/SGPT) 36 U/L (0-56) Alkaline Phosphatase 86 U/L (0-126) Total Protein 6.9 g/dl (6.3-8.2) Albumin 3.9 g/dl (3.5-5.0) Chemistry Test 04/18/19 18:18 White Blood Count 6.5 k/uL (4.5-11.0) Red Blood Count 4.80 M/uL (4.17-5.56) Hemoglobin 14.5 g/dL (12.0-16.0) Hematocrit 42.7 % (34.0-47.0) Mean Corpuscular Volume 89.0 fL (80.0-96.0) Mean Corpuscular Hemoglobin 30.2 pg (26.0-33.0) Mean Corpuscular Hemoglobin Concent 33.9 g/dL (32.0-36.0) Red Cell Distribution Width 13.4 % (11.5-14.5) Platelet Count 307 K/uL (150-450) Mean Platelet Volume 8.1 fL (7.2-11.1) Neutrophils (%) (Auto) 58.5 % (39.4-72.5) Lymphocytes (%) (Auto) 29.4 % (17.6-49.6) Monocytes (%) (Auto) 7.7 % (4.1-12.4) Eosinophils (%) (Auto) 3.4 % (0.4-6.7) Basophils (%) (Auto) 1.0 % (0.3-1.4) Nucleated RBC Relative Count (auto) 0.0 /100WBC Neutrophils # (Auto) 3.8 K/uL (2.0-7.4) Lymphocytes # (Auto) 1.9 K/uL (1.3-3.6) Monocytes # (Auto) 0.5 K/uL (0.3-1.0) Eosinophils # (Auto) 0.2 K/uL (0.0-0.5) Basophils # (Auto) 0.1 K/uL (0.0-0.1) Nucleated RBC Absolute Count (auto) 0.00 K/uL D-Dimer Quantitative (PE/DVT) 0.45 ug/ml (0-0.50) Glomerular Filtration Rate Calc 45.7 Calcium Level 9.0 mg/dl (8.4-10.2) Total Bilirubin 0.5 mg/dl (0.2-1.3) Aspartate Amino Transf (AST/SGOT) 33 U/L (0-35) Alanine Aminotransferase (ALT/SGPT) 36 U/L (0-56) Alkaline Phosphatase 86 U/L (0-126) Total Protein 6.9 g/dl (6.3-8.2) Albumin 3.9 g/dl (3.5-5.0) Coagulation Test 04/18/19 18:18 D-Dimer Quantitative (PE/DVT) 0.45 ug/ml EKG/Imaging EKG Interpretation 12 lead EKG: Rhythm: Sinus bradycardia with ventricular rate of 59 [place]: normal QRS: normal ST segments: normal Monitor Interpretation: Sinus Bradycardia Imaging PATIENT NAME: Floridalma Santos : 1955 MR: [id number] V: [id number] EXAM DATE: ORDERING PHYSICIAN: TC LOVE TECHNOLOGIST: Location: [facility] Patient: Floridalma Santos : 1955 Visit/Account:[id number] Date of Sevice: 04/18/2019 Venous Doppler ultrasound left lower extremity Indication: Left leg pain.. Comparison: None Available Findings: Duplex Doppler and color flow imaging was performed. The common femoral, femoral, and popliteal veins are all patent and compressible with normal Doppler wave forms. There are normal responses to augmentation. The posterior tibial and peroneal veins are patent in the calf. The proximal greater saphenous vein is also normal. The popliteal fossa does show a mildly complex Vera's cyst measuring 2.8 x 1.0 x 2.0 cm. IMPRESSION: 1. No evidence of deep venous thrombosis of the left lower extremity. 2. Mildly complex Vera's cyst. Location: [facility] Patient: Floridalma Santos : 1955 Visit/Account:[id number] Date of Sevice: 04/18/2019 Exam type: CHEST PA LAT History: subscapular pain Comparison: 05/04/2015. Findings: Both lungs appear to be well expanded and clear. There is no focal infiltrate, pleural effusion or pneumothorax. Heart size is normal. The osseous structures demonstrate degenerative changes. IMPRESSION: 1. No acute cardiopulmonary disease. ED Course/Re-evaluation ED Course Upon arrival to the ED, patient was admitted to an exam room, hx and physical obtained, differentials considered. Patient presents with concerns about a blood clot. Patient reports she started to have pain behind her knee after a 5 hour flight to [place] on March 28. Patient states that the pain has been dull and comes and goes. Patient states that today, approximately two hours prior to coming to the ED she started to feel a dull pain under her right scapula. She reports the pain is constant and feels internal. She denies SOB, chest pain, and heart palpitations. Patient has hx of hysterectomy and has been on estrogen for approximately 12 years. Recently she has seen a PA at a Women's clinic in [facility] for hormone therapy and was placed on progesterone and testosterone about a week prior to traveling to [place]. On exam, lungs are clear, heart is normal. No redness, warmth, or swelling to posterior left knee. No redness, warmth, or swelling subscapularis. IV started. CBC, CMP, D-dimer, EKG, chest x- ray, and venous doppler of posterior left knee ordered. EKG with sinus bradycardia with ventricular rate of 59. Blood work unremarkable with normal WBC and H&H. D-dimer negative at 0.5. Mild complex Vera's cyst noted on venogram of left lower extremity. Chest x-ray with no acute cardiopulmonary process. Patient does not have a DVT or PE; will be discharged home. Discussed with patient care of a Vera's cyst that includes NSAID's, compression, and ice. She may have to follow-up with her PCP for drainage of her cyst. Patient agrees with plan of care. Decision to Disposition Date: Apr 18, 2019 Decision to Disposition Time: 20:42 Depart Departure Latest Vital Signs Vital Signs Date Time Temp Pulse Resp B/P (MAP) Pulse Ox O2 Delivery O2 Flow Rate FiO2 04/18/19 20:43 58 89 04/18/19 20:30 121/49 (73) 04/18/19 18:13 98.2 20 Room Air Impression: Primary Impression: Bakers cyst Condition: Condition Unchanged Disposition: HOME OR SELF-CARE Referrals: STACI MCINTOSH DO (PCP) Patient Instructions: Bakers Cyst (ED) Additional Instructions: Please drink plenty of fluid and get plenty of rest. You have a Vera's cyst posterior left knee. To help with the cyst you may take ibuprofen, wrap in an faustino wrap, and ice the back of the knee. Follow-up with your primary care provider for the cyst; she may refer you to orthopedics to have the cyst drained. Continue current medications as prescribed. Return to the ER if you experience shortness of breath, chest pain, or for any other concern. Problem Qualifiers Primary Impression: Bakers cyst Laterality: left Qualified Codes: M71.22 - Synovial cyst of popliteal space [Vera], left knee TC LOVE Apr 18, 2019 18:19
[2019-04-18 18:59] LABS: PLATELET COUNT, AUTOMATED 307 K/uL (150-450)
--- NOTE | 2019-04-18 19:08 | EKG ---
FACILITY: [facility] - [place] PATIENT NAME: JESÚS MOTA : [id number] MR: [id number] V: [id number] EXAM DATE: ORDERING PHYSICIAN: TC LOVE TECHNOLOGIST: SOURAV Test Reason : CP Blood Pressure : / mmHG Vent. Rate : 059 BPM Atrial Rate : 059 BPM P-R Int : 140 ms QRS Dur : 078 ms QT Int : 422 ms P-R-T Axes : 048 018 011 degrees QTc Int : 417 ms Sinus bradycardia Borderline ECG When compared with ECG of 12-DEC-2015 08:21, No significant change was found Confirmed by BRITTNY CLARK ([id number]) on 04/19/2019 6:26:52 AM Referred By: IVAN Confirmed By:BRITTNY CLARK
--- NOTE | 2019-04-18 19:18 | RADIOLOGY IMAGING REPORT ---
FACILITY: [facility] PATIENT NAME: Floridalma Santos : 1955 MR: [id number] V: [id number] EXAM DATE: ORDERING PHYSICIAN: TC LOVE TECHNOLOGIST: [place] [facility] [place] Floridalma [place] : 1955 Visit/Account:[id number] Date of Sevice: 04/18/2019 Exam type: CHEST PA LAT History: subscapular pain Comparison: 05/04/2015. Findings: Both lungs appear to be well expanded and clear. There is no focal infiltrate, pleural effusion or p neumothorax. Heart size is normal. The osseous structures demonstrate degenerative changes. IMPRESSION: 1. No acute cardiopulmonary disease. Report Dictated By: Maxim Arechiga MD at 04/18/2019 7:13 PM Report E-Signed By: Maxim Arechiga MD at 04/18/2019 7:14 PM WSN:[id number]
[2019-04-18 20:30] VITALS: BP 121/49
--- NOTE | 2019-04-18 20:31 | RADIOLOGY IMAGING REPORT ---
FACILITY: [facility] [place] PATIENT NAME: Floridalma Santos : 1955 MR: [id number] V: [id number] EXAM DATE: ORDERING PHYSICIAN: TC LOVE TECHNOLOGIST: Location: [facility] Patient: Floridalma Santos : 1955 Visit/Account:[id number] Date of Sevice: 04/18/2019 Venous Doppler ultrasound left lower extremity Indication: Left leg pain.. Comparison: None Available Findings: Duplex Doppler and color flow imaging was performed. The common femoral, femoral, and popl iteal veins are all patent and compressible with normal Doppler wave forms. There are normal respons es to augmentation. The posterior tibial and peroneal veins are patent in the calf. The proximal greater saphenous vein is also normal. The popliteal fossa does show a mildly complex Vera's cyst measuring 2.8 x 1.0 x 2.0 cm. IMPRESSION: 1. No evidence of deep venous thrombosis of the left lower extremity. 2. Mildly complex Vera's cyst. Report Dictated By: Maxim Sung at 04/18/2019 8:24 PM Report E-Signed By: Maxim Sung at 04/18/2019 8:26 PM WSN:[id number]
== END 2019-04-18 20:52 | disposition home or self-care (01) ==
LOC: ER 18:15
DX: M71.22 Synovial cyst of popliteal space [Baker], left knee (principal); R07.9 Chest pain, unspecified; R00.1 Bradycardia, unspecified
CPT/HCPCS: 71046; 82040; 82247; 82310; 82374; 82435; 82565; 82947; 84075; 84132; 84155; 84295; 84450; 84460; 84520; 85025; 85379; 93005; 99284

== ENCOUNTER → 2019-04-28 | Outpatient (CLI) | payer BC | LOC: LAB 09:26 | PROVIDERS: ATTEND Physician Assistant | DX: N95.1 Menopausal and female climacteric states (principal) | CPT/HCPCS: 36415; 82670; 84144; 84403 ==

== ENCOUNTER → 2019-05-22 | Outpatient (CLI) | payer BC | LOC: LAB 12:11 | PROVIDERS: ATTEND Internal Medicine Endocrinology, Diabetes & Metabolism | DX: E21.3 Hyperparathyroidism, unspecified (principal); E78.5 Hyperlipidemia, unspecified; E03.9 Hypothyroidism, unspecified; E55.9 Vitamin D deficiency, unspecified; R73.01 Impaired fasting glucose | CPT/HCPCS: 36415; 82040; 82247; 82306; 82310; 82330; 82374; 82435; 82465; 82565; 82947; 83036; 83718; 83735; 83970; 84075; 84132; 84155; 84295; 84443; 84450; 84460; 84478; 84520 ==